=== PATIENT | male | born 1965 | race Two or more races ===

== ENCOUNTER → 2017-06-02 | Emergency (ER) | payer OTHER ==
[~2017-06-02] VITALS: Ht 180.3 cm; Wt 106.6 kg
[~2017-06-02] MED LIST: AMOX1TAB12 PO; AZO STANDARD95 MG; CLONAZEPAM0.5 MG PO; DIOVAN HCT 320/1 TA2; DIOVAN320 MG PO; FENOFIBRATE40 MG; HYOSCYAMINE0.125 M1 SL; INTESTINEX1 CA1 PO; LEVAQUIN500 MG PO; Mylicon 125MG PO; NEURONTIN300 MG; OXYC1TAB9 PO; PEPCID20 MG PO; PNEU16DI2; PROBIOTIC & AC1 EACH PO; SERTRALINE HCL25 MG PO; TAMS0.4C PO; VALSARTAN-HCTZ1 EAC3 PO
== END | disposition home or self-care (01) ==
LOC: ER 17:04
DX: R10.31 Right lower quadrant pain (principal); R31.0 Gross hematuria; N39.0 Urinary tract infection, site not specified; R82.79 Other abnormal findings on microbiological examination of urine

== ENCOUNTER 2017-07-03 20:55 | Emergency (ER) | payer OTHER ==
[~2017-07-03] VITALS: Ht 180.3 cm; Wt 104.3 kg
== END 2017-07-03 23:46 | disposition home or self-care (01) ==
LOC: ER 20:55
DX: N39.0 Urinary tract infection, site not specified (principal); M54.5 Low back pain

== ENCOUNTER 2017-11-13 18:51 | Inpatient (IN) | payer OTHER ==
[~2017-11-13] VITALS: Ht 180.3 cm; Wt 120.2 kg
[2017-11-19] MEDS ORDERED: TAMSULOSIN HCL0.4 MG PO (14:11)
[2017-11-19] MEDS ORDERED: FENOFIBRATE40 MG PO (14:11)
[2017-11-19] MEDS ORDERED: VERAPAMIL ER240 MG PO (14:11)
[2017-11-19] MEDS ORDERED: LEVAQUIN500 MG PO (14:11)
== END 2017-11-19 14:20 | disposition home or self-care (01) | DRG 690 ==
LOC: ER 18:51 → MEDI 11-14 11:51 → SEC-K 11-14 11:51 → MEDI 11-14 14:07
PROC: BT43ZZZ Ultrasonography of Bilateral Kidneys (ICD-10-PCS; principal; 2017-11-14)
PROC: CT131ZZ Planar Nuclear Medicine Imaging of Kidneys, Ureters and Bladder using Technetium 99m (Tc-99m) (ICD-10-PCS; 2017-11-16)
DX: N13.6 Pyonephrosis (principal); N40.0 Benign prostatic hyperplasia without lower urinary tract symptoms; N17.8 Other acute kidney failure; E66.8 Other obesity; Z68.39 Body mass index [BMI] 39.0-39.9, adult; Z93.3 Colostomy status; B96.1 Klebsiella pneumoniae [K. pneumoniae] as the cause of diseases classified elsewhere; B95.4 Other streptococcus as the cause of diseases classified elsewhere; C43.51 Malignant melanoma of anal skin; L80 Vitiligo; I12.9 Hypertensive chronic kidney disease with stage 1 through stage 4 chronic kidney disease, or unspecified chronic kidney disease; N18.1 Chronic kidney disease, stage 1; D63.1 Anemia in chronic kidney disease

== ENCOUNTER 2019-03-02 14:05 | Emergency (ER) | payer OTHER ==
[~2019-03-02] VITALS: Ht 180.3 cm; Wt 117.0 kg
[~2019-03-02 14:05] MED LIST changes: +FENOFIBRATE40 MG PO; +TAMSULOSIN HCL0.4 MG PO; +VERAPAMIL ER240 MG PO
== END 2019-03-02 21:20 | disposition home or self-care (01) ==
LOC: ER 14:05
DX: J06.9 Acute upper respiratory infection, unspecified (principal); N39.0 Urinary tract infection, site not specified; B96.1 Klebsiella pneumoniae [K. pneumoniae] as the cause of diseases classified elsewhere; B95.4 Other streptococcus as the cause of diseases classified elsewhere

== ENCOUNTER 2019-03-06 20:35 | Inpatient (IN) | payer OTHER ==
[~2019-03-06] VITALS: Ht 160 cm; Wt 122.5 kg
[2019-03-06] MEDS ORDERED: SULFAMETHOXAZO500 GM (20:56)
== END 2019-03-17 15:25 | disposition home or self-care (01) | DRG 689 ==
LOC: ER 20:35 → SURH 03-07 10:58
PROVIDERS: ADMIT Internal Medicine
PROC: 0T9030Z Drainage of Right Kidney with Drainage Device, Percutaneous Approach (ICD-10-PCS; principal; 2019-03-09)
PROC: 0WBH3ZX Excision of Retroperitoneum, Percutaneous Approach, Diagnostic (ICD-10-PCS; 2019-03-09)
PROC: BB24ZZZ Computerized Tomography (CT Scan) of Bilateral Lungs (ICD-10-PCS; 2019-03-15)
PROC: 0W9930Z Drainage of Right Pleural Cavity with Drainage Device, Percutaneous Approach (ICD-10-PCS; 2019-03-16)
DX: N13.6 Pyonephrosis (principal); R65.20 Severe sepsis without septic shock; C19 Malignant neoplasm of rectosigmoid junction; N30.01 Acute cystitis with hematuria; J90 Pleural effusion, not elsewhere classified; J98.11 Atelectasis; N17.8 Other acute kidney failure; I12.9 Hypertensive chronic kidney disease with stage 1 through stage 4 chronic kidney disease, or unspecified chronic kidney disease; N40.0 Benign prostatic hyperplasia without lower urinary tract symptoms; N18.2 Chronic kidney disease, stage 2 (mild); L80 Vitiligo; J98.6 Disorders of diaphragm; R19.09 Other intra-abdominal and pelvic swelling, mass and lump; R59.0 Localized enlarged lymph nodes; E66.09 Other obesity due to excess calories; Z68.35 Body mass index [BMI] 35.0-35.9, adult

== ENCOUNTER 2019-06-19 11:19 | Inpatient (IN) | payer OTHER ==
[~2019-06-19] VITALS: Ht 180.3 cm; Wt 122.5 kg
[~2019-06-19 11:19] MED LIST changes: +SULFAMETHOXAZO500 GM
[2019-06-27] MEDS ORDERED: INTESTINEX680 M1 PO (13:16)
[2019-06-27] MEDS ORDERED: FAMOTIDINE20 MG PO (13:16)
== END 2019-06-27 14:17 | disposition home or self-care (01) | DRG 699 ==
LOC: ER 11:19 → SURH 20:43
PROVIDERS: ADMIT Internal Medicine Geriatric Medicine
PROC: BW21ZZZ Computerized Tomography (CT Scan) of Abdomen and Pelvis (ICD-10-PCS; principal; 2019-06-19)
PROC: BT2 Imaging, Urinary System, Computerized Tomography (CT Scan) (ICD-10-PCS; 2019-06-23)
DX: N99.522 Malfunction of incontinent external stoma of urinary tract (principal); N13.6 Pyonephrosis; C21.1 Malignant neoplasm of anal canal; E66.01 Morbid (severe) obesity due to excess calories; Z68.35 Body mass index [BMI] 35.0-35.9, adult; B96.1 Klebsiella pneumoniae [K. pneumoniae] as the cause of diseases classified elsewhere; B95.4 Other streptococcus as the cause of diseases classified elsewhere; N20.0 Calculus of kidney; I12.9 Hypertensive chronic kidney disease with stage 1 through stage 4 chronic kidney disease, or unspecified chronic kidney disease; N18.3 Chronic kidney disease, stage 3 (moderate); K43.5 Parastomal hernia without obstruction or gangrene

== ENCOUNTER 2019-07-05 18:14 | Inpatient (IN) | payer OTHER ==
[~2019-07-05] VITALS: Ht 180.3 cm; Wt 126.6 kg
[~2019-07-05 18:14] MED LIST changes: +FAMOTIDINE20 MG PO; +INTESTINEX680 M1 PO
[2019-07-12] MEDS ORDERED: AMLODIPINE BESYL5 MG PO (11:19)
[2019-07-12] MEDS ORDERED: FAMOTIDINE20 MG PO (11:19)
[2019-07-12] MEDS ORDERED: INTESTINEX680 M1 PO (11:19)
== END 2019-07-12 11:59 | disposition home or self-care (01) | DRG 699 ==
LOC: ER 18:14 → SEC-K 20:42 → SURG 20:42
PROVIDERS: ADMIT Internal Medicine Geriatric Medicine; ATTEND Internal Medicine Geriatric Medicine
PROC: 0T9430Z Drainage of Left Kidney Pelvis with Drainage Device, Percutaneous Approach (ICD-10-PCS; principal; 2019-07-07)
PROC: 0T9330Z Drainage of Right Kidney Pelvis with Drainage Device, Percutaneous Approach (ICD-10-PCS; 2019-07-07)
PROC: BT2 Imaging, Urinary System, Computerized Tomography (CT Scan) (ICD-10-PCS; 2019-07-07)
DX: N99.522 Malfunction of incontinent external stoma of urinary tract (principal); N13.30 Unspecified hydronephrosis; C21.0 Malignant neoplasm of anus, unspecified; N39.0 Urinary tract infection, site not specified; N17.9 Acute kidney failure, unspecified; I12.9 Hypertensive chronic kidney disease with stage 1 through stage 4 chronic kidney disease, or unspecified chronic kidney disease; N18.3 Chronic kidney disease, stage 3 (moderate); L80 Vitiligo; E66.9 Obesity, unspecified; Z68.35 Body mass index [BMI] 35.0-35.9, adult; B96.1 Klebsiella pneumoniae [K. pneumoniae] as the cause of diseases classified elsewhere

== ENCOUNTER 2019-10-15 16:48 | Inpatient (IN) | payer OTHER ==
[~2019-10-15] VITALS: Ht 180.3 cm; Wt 121.1 kg
[~2019-10-15 16:48] MED LIST changes: +AMLODIPINE BESYL5 MG PO
[2019-10-15] MEDS ORDERED: AMLODIPINE BESY10 MG PO (17:02)
[2019-10-15] MEDS ORDERED: LISINOPRIL10 MG PO (17:02)
[2019-10-17] MEDS ORDERED: AMLODIPINE BESYL5 MG PO (08:31)
[2019-10-26] MEDS ORDERED: AMLODIPINE BESY10 MG PO (17:00)
[2019-10-26] MEDS ORDERED: FAMOTIDINE20 MG PO (17:00)
[2019-10-26] MEDS ORDERED: INTESTINEX680 M1 PO (17:00)
== END 2019-10-26 17:21 | disposition home health service (06) | DRG 699 ==
LOC: ER 16:48 → SURG 18:56 → SURH 10-17 13:32
PROVIDERS: ADMIT Internal Medicine Geriatric Medicine; ATTEND Internal Medicine Geriatric Medicine
PROC: 0T9330Z Drainage of Right Kidney Pelvis with Drainage Device, Percutaneous Approach (ICD-10-PCS; principal; 2019-10-17)
DX: N99.522 Malfunction of incontinent external stoma of urinary tract (principal); N39.0 Urinary tract infection, site not specified; N13.39 Other hydronephrosis; I12.9 Hypertensive chronic kidney disease with stage 1 through stage 4 chronic kidney disease, or unspecified chronic kidney disease; N18.3 Chronic kidney disease, stage 3 (moderate); E66.9 Obesity, unspecified; Z68.35 Body mass index [BMI] 35.0-35.9, adult; L80 Vitiligo; B96.1 Klebsiella pneumoniae [K. pneumoniae] as the cause of diseases classified elsewhere; Z20.828 Contact with and (suspected) exposure to other viral communicable diseases

== ENCOUNTER 2020-04-01 16:57 | Inpatient (IN) | payer OTHER ==
[~2020-04-01] VITALS: Ht 180.3 cm; Wt 124.7 kg
[~2020-04-01 16:57] MED LIST changes: +AMLODIPINE BESY10 MG PO; +LISINOPRIL10 MG PO
[2020-04-11] MEDS ORDERED: AMLODIPINE BESY10 MG PO (13:51)
[2020-04-11] MEDS ORDERED: INTESTINEX680 M1 PO (13:51)
[2020-04-11] MEDS ORDERED: FAMOTIDINE20 MG PO (13:51)
[2020-04-11] MEDS ORDERED: LISINOPRIL5 MG PO (13:51)
== END 2020-04-11 15:04 | disposition home or self-care (01) | DRG 699 ==
LOC: ER 16:57 → MEDJ 19:03
PROVIDERS: ADMIT Internal Medicine Geriatric Medicine; ATTEND Internal Medicine Geriatric Medicine
PROC: 8E0ZXY6 Isolation (ICD-10-PCS; principal; 2020-04-02)
PROC: 0T9430Z Drainage of Left Kidney Pelvis with Drainage Device, Percutaneous Approach (ICD-10-PCS; 2020-04-04)
PROC: 0T9330Z Drainage of Right Kidney Pelvis with Drainage Device, Percutaneous Approach (ICD-10-PCS; 2020-04-04)
DX: T83.012A Breakdown (mechanical) of nephrostomy catheter, initial encounter (principal); N13.6 Pyonephrosis; Z68.35 Body mass index [BMI] 35.0-35.9, adult; I12.9 Hypertensive chronic kidney disease with stage 1 through stage 4 chronic kidney disease, or unspecified chronic kidney disease; N18.32 Chronic kidney disease, stage 3b; Z20.822 Contact with and (suspected) exposure to COVID-19; B96.1 Klebsiella pneumoniae [K. pneumoniae] as the cause of diseases classified elsewhere; L80 Vitiligo; E66.01 Morbid (severe) obesity due to excess calories; R31.9 Hematuria, unspecified; Z93.3 Colostomy status

== ENCOUNTER 2020-10-10 18:13 | Inpatient (IN) | payer OTHER ==
[~2020-10-10] VITALS: Ht 180.3 cm; Wt 124.7 kg
[~2020-10-10 18:13] MED LIST changes: +LISINOPRIL5 MG PO
[2020-10-14] MEDS ORDERED: FAMOTIDINE20 MG (09:45)
== END 2020-10-21 13:35 | disposition home or self-care (01) | DRG 699 ==
LOC: ER 18:13 → MEDI 10-11 00:18
PROVIDERS: Radiology Vascular & Interventional Radiology; ADMIT Internal Medicine Geriatric Medicine; ATTEND Internal Medicine Geriatric Medicine
PROC: 0T25X0Z Change Drainage Device in Kidney, External Approach (ICD-10-PCS; principal; 2020-10-14 19:00)
DX: T83.032A Leakage of nephrostomy catheter, initial encounter (principal); N17.8 Other acute kidney failure; C21.1 Malignant neoplasm of anal canal; R78.81 Bacteremia; N13.1 Hydronephrosis with ureteral stricture, not elsewhere classified; I12.9 Hypertensive chronic kidney disease with stage 1 through stage 4 chronic kidney disease, or unspecified chronic kidney disease; N18.31 Chronic kidney disease, stage 3a; E66.8 Other obesity; Z68.35 Body mass index [BMI] 35.0-35.9, adult; Z20.822 Contact with and (suspected) exposure to COVID-19; Y83.8 Other surgical procedures as the cause of abnormal reaction of the patient, or of later complication, without mention of misadventure at the time of the procedure; B96.5 Pseudomonas (aeruginosa) (mallei) (pseudomallei) as the cause of diseases classified elsewhere

== ENCOUNTER 2021-04-06 15:54 | Inpatient (IN) | payer OTHER ==
[~2021-04-06] VITALS: Ht 180.3 cm; Wt 122.5 kg
[~2021-04-06 15:54] MED LIST changes: +FAMOTIDINE20 MG
[2021-04-14] MEDS ORDERED: INTESTINEX680 M1 PO (10:39)
[2021-04-14] MEDS ORDERED: LISINOPRIL5 MG PO (10:39)
[2021-04-14] MEDS ORDERED: AMLODIPINE BESY10 MG PO (10:39)
== END 2021-04-14 11:00 | disposition home or self-care (01) | DRG 699 ==
LOC: ER 15:54 → SEC-K 04-07 14:41 → MEDJ 04-07 16:20
PROVIDERS: ADMIT Internal Medicine Geriatric Medicine; ATTEND Internal Medicine Geriatric Medicine
PROC: 0T25X0Z Change Drainage Device in Kidney, External Approach (ICD-10-PCS; principal; 2021-04-09)
DX: N99.522 Malfunction of incontinent external stoma of urinary tract (principal); C19 Malignant neoplasm of rectosigmoid junction; N39.0 Urinary tract infection, site not specified; R65.10 Systemic inflammatory response syndrome (SIRS) of non-infectious origin without acute organ dysfunction; N18.30 Chronic kidney disease, stage 3 unspecified; I12.9 Hypertensive chronic kidney disease with stage 1 through stage 4 chronic kidney disease, or unspecified chronic kidney disease; E11.22 Type 2 diabetes mellitus with diabetic chronic kidney disease; E66.8 Other obesity; Z46.6 Encounter for fitting and adjustment of urinary device

== ENCOUNTER 2021-09-06 17:41 | Inpatient (IN) | payer OTHER ==
[~2021-09-06] VITALS: Ht 180.3 cm; Wt 126.6 kg
[2021-09-06] MEDS ORDERED: PANADOL (18:35)
--- NOTE | 2021-09-06 18:35 | NUR ---
PTE SE RECIBE POR VOMITOS FIEBRE Y DOLOR EN LOS RINONES REFIERE PTE.
--- NOTE | 2021-09-06 20:20 | NUR ---
PACIENTE SE LE REALIZAN MUESTRAS DE YARED POR ORDEN MEDICA, SE ORIENTA SOBRE USO Y EFECTOS DE LOS MEDICAMENTOS A SER ADMINISTRADOS. PACIENTE SE LE REALIZAN MUESTRAS DE YARED Y CULTIVOS DE YARED. PACIENTE AL MOMENTO SE MANTIENENENE SPERA DE REALZIAR SONOGRAMA.
--- NOTE | 2021-09-06 23:09 | NUR ---
SE RECIBE PTE ALERTA Y ORIENTADO X3 EN CAMA BAJA CON BARANDAS ELEVADAS POR SEGURIDAD, CON BUEN PATRON RESIRATORIO, RECIBIENDO IV FLUIDS PATENTE. AREA DE VENOPUNCION SAFIA DE EDEMA. SE MANTIENE BAJO OBSERVACION POR CAMBIOS SIGNIFICATIVOS
[2021-09-08] MEDS ORDERED: PANADOL EXTRA500 MG (08:33)
[2021-09-12] MEDS ORDERED: ABANEU-SL TABL1 EACH SL (13:43)
[2021-09-12] MEDS ORDERED: PEPCID AC20 MG PO (13:43)
[2021-09-12] MEDS ORDERED: FUSION PLUS CA1 EACH PO (13:43)
[2021-09-12] MEDS ORDERED: AMLODIPINE BESY10 MG PO (13:43)
== END 2021-09-12 14:26 | disposition home or self-care (01) | DRG 699 ==
LOC: ER 17:41 → SURG 09-07 13:16
PROVIDERS: ADMIT Internal Medicine Geriatric Medicine; ATTEND Internal Medicine Geriatric Medicine
PROC: BT4JZZZ Ultrasonography of Kidneys and Bladder (ICD-10-PCS; 2021-09-06)
PROC: 0T9430Z Drainage of Left Kidney Pelvis with Drainage Device, Percutaneous Approach (ICD-10-PCS; principal; 2021-09-09)
PROC: 0T9330Z Drainage of Right Kidney Pelvis with Drainage Device, Percutaneous Approach (ICD-10-PCS; 2021-09-09)
DX: N99.522 Malfunction of incontinent external stoma of urinary tract (principal); N13.6 Pyonephrosis; C21.8 Malignant neoplasm of overlapping sites of rectum, anus and anal canal; N17.9 Acute kidney failure, unspecified; I12.9 Hypertensive chronic kidney disease with stage 1 through stage 4 chronic kidney disease, or unspecified chronic kidney disease; N40.1 Benign prostatic hyperplasia with lower urinary tract symptoms; N18.30 Chronic kidney disease, stage 3 unspecified; D63.1 Anemia in chronic kidney disease; F32.9 Major depressive disorder, single episode, unspecified; N28.9 Disorder of kidney and ureter, unspecified

== ENCOUNTER 2022-06-17 19:24 | Inpatient (IN) | payer OTHER ==
[~2022-06-17] VITALS: Ht 180.3 cm; Wt 81.2 kg
[~2022-06-17 19:24] MED LIST changes: +ABANEU-SL TABL1 EACH SL; +FUSION PLUS CA1 EACH PO; +PANADOL; +PANADOL EXTRA500 MG; +PEPCID AC20 MG PO
[2022-06-24] MEDS ORDERED: AMLODIPINE BESY10 MG PO (13:07)
[2022-06-24] MEDS ORDERED: FUSION PLUS CA1 EACH PO (13:07)
[2022-06-24] MEDS ORDERED: ABANEU-SL TABL1 EACH SL (13:07)
[2022-06-24] MEDS ORDERED: INTESTINEX680 M1 PO (13:07)
== END 2022-06-24 15:34 | disposition home or self-care (01) | DRG 699 ==
LOC: ER 19:24 → MEDJ 21:48 → MEDI 06-23 17:43
PROVIDERS: Radiology Vascular & Interventional Radiology; ADMIT Internal Medicine Geriatric Medicine; ATTEND Internal Medicine Geriatric Medicine
PROC: 0T25X0Z Change Drainage Device in Kidney, External Approach (ICD-10-PCS; 2022-06-18)
PROC: 0T25X0Z Change Drainage Device in Kidney, External Approach (ICD-10-PCS; principal; 2022-06-18 18:45)
DX: T83.512A Infection and inflammatory reaction due to nephrostomy catheter, initial encounter (principal); N13.6 Pyonephrosis; N17.9 Acute kidney failure, unspecified; N39.0 Urinary tract infection, site not specified; T83.092A Other mechanical complication of nephrostomy catheter, initial encounter; R33.8 Other retention of urine; I12.9 Hypertensive chronic kidney disease with stage 1 through stage 4 chronic kidney disease, or unspecified chronic kidney disease; N18.30 Chronic kidney disease, stage 3 unspecified; Z85.038 Personal history of other malignant neoplasm of large intestine

== ENCOUNTER 2022-11-13 19:12 | Inpatient (IN) | payer OTHER ==
[~2022-11-13] VITALS: Ht 180.3 cm; Wt 122.5 kg
[2022-11-13 20:59] LABS: HEMATOCRIT 39.8 % (39.0-48.0); HEMOGLOBIN 13.9 g/dL (13-16.00); MEAN CORPUSCULAR HEMOGLOBIN 31.1 pg (27.00-32.0); MEAN CORPUSCULAR HGB CONC 34.9 g/dl (32.0-36.0); PLATELET COUNT 334 K/uL (150-450); RED BLOOD COUNT 4.47 M/uL (4.00-6.00)
[2022-11-13 21:28] LABS: ALBUMIN 3.2 gm/dL (3.4-5.0); BILIRUBIN TOTAL 0.6 mg/dL (0.3-1.2); CALCIUM 9.5 mg/dL (8.5-10.1); GFR 10.05; GLOBULINA 6.8 G/DL (2.4-3.5); POTASSIUM 3.18 mEq/L (3.5-5.1)
[2022-11-13 21:32] LABS: CREATININE SERUM 5.84 mg/dL (0.70-1.30)
[2022-11-13 21:50] LABS: URINE APPEARANCE Turbid; URINE BILIRRUBIN Negative (NEGATIVE); URINE BLOOD Large; URINE COLOR Dark Yellow; URINE GLUCOSE Negative (NEGATIVE); URINE LEUKOCYTE Large; URINE NITRATE Negative; URINE UROBILINOGEN 0.2 E.U./dl
[2022-11-13 21:53] LABS: URINE RBC 913.9 uL (0.0-20.8)
[2022-11-13 22:10] LABS: URINE BACTERIA > 9821.2 uL (0.0-1933); URINE EPITHELIAL CELLS > 201.7 uL (0.0-38.8); URINE PROTEIN 300 (NEGATIVE); URINE WBC > 5548.3 uL (0.0-23.2)
[2022-11-13 22:11] LABS: URINE BACTERIA MANY; URINE MUCUS SCANT
[2022-11-13 22:12] LABS: URINE CRYSTALS FEW /HPF
[2022-11-14 05:34] LABS: HEMATOCRIT 37.9 % (39.0-48.0); HEMOGLOBIN 12.6 g/dL (13-16.00); MEAN CELL VOLUME 90.6 fL (80.0-100.00); MEAN CORPUSCULAR HEMOGLOBIN 30.1 pg (27.00-32.0); MEAN CORPUSCULAR HGB CONC 33.3 g/dl (32.0-36.0); PLATELET COUNT 299 K/uL (150-450); RED BLOOD COUNT 4.18 M/uL (4.00-6.00); RED CELL DISTRIBUTION WIDTH 13.7 % (11.5-14.5)
[2022-11-14 05:35] LABS: ERYTHROCYTE SEDIMENTATION RATE 49 mm/hr
[2022-11-14 05:49] LABS: INR 1.08; PARTIAL THROMBOPLASTIN TIME 33.9 SECONDS (22.0-34.0); PROTHROMBIN TIME 11.3 SECONDS (9.0-11.5)
[2022-11-14 05:53] LABS: BILIRUBIN TOTAL 0.48 mg/dL (0.3-1.2); BILIRUBIN,CONJUGATED 0.26 mg/dL (0.0-0.2); BILIRUBIN,UNCONJUGATED 0.22 mg/dL (0.0-0.6); CALCIUM 8.7 mg/dL (8.5-10.1); CHOL HDL RATIO 3.7 (0-5.0); GLOBULINA 6.3 G/DL (2.4-3.5); TOTAL PROTEIN 9.3 gm/dL (6.4-8.2)
[2022-11-14 06:35] LABS: C-REACTIVE PROTEIN 16.9 MG/DL (0.00-0.29); GFR 10.88
[2022-11-14 10:39] LABS: CREATININE SERUM 5.45 mg/dL (0.70-1.30)
[2022-11-14 10:40] LABS: POTASSIUM 2.87 mEq/L (3.5-5.1)
[2022-11-14 16:07] LABS: URINE APPEARANCE Turbid; URINE BILIRRUBIN Negative (NEGATIVE); URINE BLOOD Large; URINE COLOR Yellow; URINE GLUCOSE Negative (NEGATIVE); URINE LEUKOCYTE Large; URINE NITRATE Negative; URINE UROBILINOGEN 0.2 E.U./dl
[2022-11-14 16:10] LABS: URINE EPITHELIAL CELLS 8.5 uL (0.0-38.8)
[2022-11-14 16:27] LABS: URINE BACTERIA > 9821.5 uL (0.0-1933); URINE CRYSTALS NEGATIVE /HPF; URINE PROTEIN 100 (NEGATIVE); URINE WBC > 5548.3 uL (0.0-23.2)
[2022-11-15 13:30] LABS: ALBUMIN 2.8 gm/dL (3.4-5.0); BILIRUBIN TOTAL 0.31 mg/dL (0.3-1.2); CALCIUM 8.5 mg/dL (8.5-10.1); GFR 11.34; POTASSIUM 3.52 mEq/L (3.5-5.1); TOTAL PROTEIN 7.8 gm/dL (6.4-8.2)
[2022-11-15 14:44] LABS: CREATININE SERUM 5.26 mg/dL (0.70-1.30)
[2022-11-16 07:16] LABS: ALBUMIN 2.6 gm/dL (3.4-5.0); BILIRUBIN TOTAL 0.3 mg/dL (0.3-1.2); CALCIUM 8.2 mg/dL (8.5-10.1); GFR 12.57; GLOBULINA 4.8 G/DL (2.4-3.5); POTASSIUM 3.64 mEq/L (3.5-5.1); TOTAL PROTEIN 7.4 gm/dL (6.4-8.2)
[2022-11-16 08:11] LABS: HEMATOCRIT 36.1 % (39.0-48.0); HEMOGLOBIN 11.9 g/dL (13-16.00); MEAN CELL VOLUME 91.5 fL (80.0-100.00); MEAN CORPUSCULAR HEMOGLOBIN 30.2 pg (27.00-32.0); PLATELET COUNT 289 K/uL (150-450); RED BLOOD COUNT 3.95 M/uL (4.00-6.00); RED CELL DISTRIBUTION WIDTH 13.9 % (11.5-14.5)
[2022-11-16 08:37] LABS: CREATININE SERUM 4.81 mg/dL (0.70-1.30)
[2022-11-16 08:42] LABS: ERYTHROCYTE SEDIMENTATION RATE 43 mm/hr
[2022-11-16 09:09] LABS: ALBUMIN 2.6 gm/dL (3.4-5.0); BILIRUBIN TOTAL 0.25 mg/dL (0.3-1.2); CALCIUM 8.4 mg/dL (8.5-10.1); GLOBULINA 4.8 G/DL (2.4-3.5); POTASSIUM 3.76 mEq/L (3.5-5.1); TOTAL PROTEIN 7.4 gm/dL (6.4-8.2)
[2022-11-16 09:45] LABS: C-REACTIVE PROTEIN 11.4 MG/DL (0.00-0.29); GFR 12.28
[2022-11-16 09:46] LABS: CREATININE SERUM 4.91 mg/dL (0.70-1.30)
[2022-11-17 07:44] LABS: HEMATOCRIT 34.5 % (39.0-48.0); HEMOGLOBIN 11.7 g/dL (13-16.00); MEAN CELL VOLUME 90.7 fL (80.0-100.00); MEAN CORPUSCULAR HEMOGLOBIN 30.8 pg (27.00-32.0); PLATELET COUNT 297 K/uL (150-450); RED CELL DISTRIBUTION WIDTH 14.2 % (11.5-14.5)
[2022-11-17 08:18] LABS: CALCIUM 8.7 mg/dL (8.5-10.1); POTASSIUM 4.22 mEq/L (3.5-5.1)
[2022-11-17 09:23] LABS: GFR 14.95
[2022-11-17 09:24] LABS: CREATININE SERUM 4.14 mg/dL (0.70-1.30)
[2022-11-18 07:16] LABS: HEMATOCRIT 34.6 % (39.0-48.0); HEMOGLOBIN 11.3 g/dL (13-16.00); MEAN CELL VOLUME 91.4 fL (80.0-100.00); MEAN CORPUSCULAR HEMOGLOBIN 29.9 pg (27.00-32.0); MEAN CORPUSCULAR HGB CONC 32.7 g/dl (32.0-36.0); PLATELET COUNT 301 K/uL (150-450); RED BLOOD COUNT 3.78 M/uL (4.00-6.00)
[2022-11-18 07:26] LABS: CALCIUM 8.5 mg/dL (8.5-10.1); CREATININE SERUM 3.62 mg/dL (0.70-1.30); GFR 17.45; PHOSPHOROUS 3.2 mg/dL (2.5-4.9); POTASSIUM 3.86 mEq/L (3.5-5.1)
[2022-11-19 07:00] LABS: CALCIUM 8.5 mg/dL (8.5-10.1); CREATININE SERUM 3.37 mg/dL (0.70-1.30); GFR 18.95; MAGNESIUM 1.8 mg/dL (1.8-2.4); PHOSPHOROUS 3.5 mg/dL (2.5-4.9); POTASSIUM 3.83 mEq/L (3.5-5.1)
[2022-11-20 07:10] LABS: CALCIUM 8.3 mg/dL (8.5-10.1); CREATININE SERUM 3.17 mg/dL (0.70-1.30); GFR 20.34; MAGNESIUM 1.8 mg/dL (1.8-2.4); PHOSPHOROUS 3.3 mg/dL (2.5-4.9); POTASSIUM 3.63 mEq/L (3.5-5.1)
[2022-11-22 07:52] LABS: CALCIUM 8.2 mg/dL (8.5-10.1); CREATININE SERUM 2.83 mg/dL (0.70-1.30); GFR 23.19; MAGNESIUM 1.6 mg/dL (1.8-2.4); PHOSPHOROUS 3.5 mg/dL (2.5-4.9); POTASSIUM 3.44 mEq/L (3.5-5.1)
[2022-11-22] MEDS ORDERED: PEPCID AC20 MG PO (13:30)
[2022-11-22] MEDS ORDERED: BENZONATATE200 M1 PO (13:30)
[2022-11-22] MEDS ORDERED: FUSION PLUS CA1 EACH PO (13:30)
[2022-11-22] MEDS ORDERED: AMLODIPINE BESY10 MG PO (13:30)
== END 2022-11-22 13:47 | disposition home or self-care (01) | DRG 872 ==
LOC: ER 19:12 → SURG 23:21 → SEC-K 23:21 → SURG 11-14 02:01
PROVIDERS: General Practice; Internal Medicine; ADMIT Internal Medicine Geriatric Medicine; ATTEND Internal Medicine Geriatric Medicine
PROC: BW21ZZZ Computerized Tomography (CT Scan) of Abdomen and Pelvis (ICD-10-PCS; principal; 2022-11-13)
PROC: 0T943ZZ Drainage of Left Kidney Pelvis, Percutaneous Approach (ICD-10-PCS; 2022-11-16)
PROC: 0T25X0Z Change Drainage Device in Kidney, External Approach (ICD-10-PCS; 2022-11-16)
DX: A41.9 Sepsis, unspecified organism (principal); N13.2 Hydronephrosis with renal and ureteral calculous obstruction; N17.9 Acute kidney failure, unspecified; N39.0 Urinary tract infection, site not specified; N99.522 Malfunction of incontinent external stoma of urinary tract; N99.521 Infection of incontinent external stoma of urinary tract; E66.9 Obesity, unspecified; Z68.35 Body mass index [BMI] 35.0-35.9, adult; I12.9 Hypertensive chronic kidney disease with stage 1 through stage 4 chronic kidney disease, or unspecified chronic kidney disease; N18.30 Chronic kidney disease, stage 3 unspecified; I10 Essential (primary) hypertension; T83.098A Other mechanical complication of other urinary catheter, initial encounter

== ENCOUNTER 2023-10-03 22:13 | Inpatient (IN) | payer OTHER ==
[~2023-10-03] VITALS: Ht 180.3 cm; Wt 122.5 kg
[~2023-10-03 22:13] MED LIST changes: +BENZONATATE200 M1 PO; +LEVOFLOXACIN500 MG PO; +LEVOFLOXACIN750 MG PO
--- NOTE | 2023-10-04 | NUR ---
PTE ALERTA Y ORIENTADO X3 REFIERE A PRESENTADO VOMITOS DESDE KATHY. REFIERE SER PTE DE DRA. MARIA ESTHER RAMIREZ Y DR. BARLOW. PTE TIENE HISTORIAL DE CANCER DE COLON. TIENE FRANCISCO JAVIER COLOSTOMIA Y 2 NEFRECTOMIAS. LA DEL LADO LT DEJO DE KARLI.
[2023-10-04] MEDS ORDERED: PROMETHAZINE HCL 50 MG/ML AMPUL IM STA (00:30)
[2023-10-04] MEDS ORDERED: KETOROLAC TROMETHAMINE 30 MG VIAL IV STA (00:30)
[2023-10-04] MEDS ORDERED: FAMOTIDINE/PF 20 MG/2 ML VIAL IV PUSH STA (00:32)
[2023-10-04] MEDS ORDERED: FAMOTIDINE/PF 20 MG/2 ML VIAL ONE ×2 (00:39→14:40)
[2023-10-04] MEDS ORDERED: PROMETHAZINE HCL 50 MG/ML AMPUL IM ONE (00:39)
[2023-10-04] MEDS ORDERED: KETOROLAC TROMETHAMINE 30 MG VIAL ONE (00:39)
[2023-10-04] MEDS ORDERED: 0.9 % SODIUM CHLORIDE 1,000 ML IV ONE (00:45)
[2023-10-04] MEDS ORDERED: CEFTRIAXONE SODIUM 1,000 MG VIAL IV STA (00:57)
--- NOTE | 2023-10-04 01:16 | NUR ---
PTE ALERTA Y ORIENTADO X3. SE REALIZAN MUESTRAS DE LAB NICOLE ORDEN MEDICA Y BAJO MEDIDAS ASEPTICAS. SE ADMNISTRA MEDICAMENTO NICOLE ORDEN MEDICA POR SAMEERA ROGERS.
[2023-10-04 01:42] LABS: HEMATOCRIT 44.5 % (39.0-48.0); HEMOGLOBIN 15.5 g/dL (13-16.00); MEAN CORPUSCULAR HEMOGLOBIN 32.8 pg (27.00-32.0); MEAN CORPUSCULAR HGB CONC 34.9 g/dl (32.0-36.0); PLATELET COUNT 202 K/uL (150-450); RED BLOOD COUNT 4.73 M/uL (4.00-6.00); RED CELL DISTRIBUTION WIDTH 13.9 % (11.5-14.5)
[2023-10-04 01:42] LABS: PH,URINE 7.5 (5.0-8.0); URINE APPEARANCE Clear; URINE BILIRRUBIN Negative (NEGATIVE); URINE BLOOD Small; URINE COLOR Orange; URINE GLUCOSE Negative (NEGATIVE); URINE KETONE Negative (NEGATIVE); URINE LEUKOCYTE Moderate; URINE NITRATE Negative; URINE UROBILINOGEN 0.2 E.U./dl
[2023-10-04 01:46] LABS: URINE CAST 1.98 uL (0.0-1.40); URINE EPITHELIAL CELLS 12.3 uL (0.0-38.8); URINE RBC 19.5 uL (0.0-20.8); URINE WBC 55.9 uL (0.0-23.2)
[2023-10-04 01:46] LABS: INR 1.01; PARTIAL THROMBOPLASTIN TIME 23.3 SECONDS (22.0-34.0)
[2023-10-04 01:56] LABS: ALBUMIN 3.8 gm/dL (3.4-5.0); BILIRUBIN TOTAL 2.13 mg/dL (0.3-1.2); CALCIUM 9.1 mg/dL (8.5-10.1); GFR 12.83; GLOBULINA 4.4 G/DL (2.4-3.5); POTASSIUM 3.13 mEq/L (3.5-5.1); TOTAL PROTEIN 8.2 gm/dL (6.4-8.2)
[2023-10-04 02:15] LABS: CREATININE SERUM 4.71 mg/dL (0.70-1.30)
[2023-10-04 02:25] LABS: URINE BACTERIA > 9821.5 uL (0.0-1933); URINE PROTEIN 100 (NEGATIVE)
--- NOTE | 2023-10-04 07:36 | NUR ---
SE RECIBE A PACIENTE ALERTA Y ORIENTADO X3 CON BUEN PATRON RESPIRATORIO DEL TURNO ANTERIOR. PACIENTE SE MANTIENE EN CAMA A NIVEL DE PISO JUNTO CON BARRANDAS ELEVADAS Y TIMBRE ACCESIBLE. PENDIENTE A CONSULTA MEDICA.
[2023-10-04] MEDS ORDERED: KETOROLAC TROMETHAMINE 60 MG VIAL IM ONE ×2 (11:15→11:19)
[2023-10-04] MEDS ORDERED: 0.9 % SODIUM CHLORIDE 1,000 ML IV SCH (13:15)
[2023-10-04] MEDS ORDERED: FAMOTIDINE/PF 20 MG/2 ML VIAL IV SCH (13:27)
[2023-10-04] MEDS ORDERED: CEFTRIAXONE SODIUM 1,000 MG VIAL IV SCH (13:27)
[2023-10-04] MEDS ORDERED: AMLODIPINE BESYLATE 10 MG TABLET PO SCH (13:28)
[2023-10-04] MEDS ORDERED: LACTOBACILLUS ACIDOPHILUS 1 CAP CAP PO SCH (13:28)
[2023-10-04] MEDS ORDERED: hydrALAZINE HCL 20 MG VIAL IV PRN (13:30)
[2023-10-04] MEDS ORDERED: ACETAMINOPHEN 500 MG GEL..CAP PO PRN (13:30)
[2023-10-04] MEDS ORDERED: ONDANSETRON HCL 2 MG/ML VIAL IV PRN (13:30)
[2023-10-04] MEDS ORDERED: POTASSIUM CHLORIDE 20MEQ/100ML H2O PB IV ONE ×2 (14:00→14:40)
[2023-10-04] MEDS ORDERED: CEFTRIAXONE SODIUM 1,000 MG VIAL ONE (14:40)
[2023-10-04] MEDS ORDERED: LACTOBACILLUS ACIDOPHILUS 1 CAP CAP PO ONE (14:40)
[2023-10-04] MEDS ORDERED: ENOXAPARIN SODIUM 30 MG/0.3 ML SYRINGE SUBCUTANEO SCH (17:00)
[2023-10-05 05:31] LABS: HEMATOCRIT 40.5 % (39.0-48.0); MEAN CELL VOLUME 95.3 fL (80.0-100.00); MEAN CORPUSCULAR HEMOGLOBIN 32.9 pg (27.00-32.0); MEAN CORPUSCULAR HGB CONC 34.5 g/dl (32.0-36.0); PLATELET COUNT 154 K/uL (150-450); RED BLOOD COUNT 4.25 M/uL (4.00-6.00); RED CELL DISTRIBUTION WIDTH 13.9 % (11.5-14.5)
[2023-10-05 05:50] LABS: ERYTHROCYTE SEDIMENTATION RATE 57 mm/hr
[2023-10-05 06:07] LABS: BILIRUBIN TOTAL 1.59 mg/dL (0.3-1.2); BILIRUBIN,CONJUGATED 0.85 mg/dL (0.0-0.2); BILIRUBIN,UNCONJUGATED 0.74 mg/dL (0.0-0.6); CALCIUM 8.3 mg/dL (8.5-10.1); GFR 10.96; GLOBULINA 3.5 G/DL (2.4-3.5); MAGNESIUM 2.1 mg/dL (1.8-2.4); PHOSPHOROUS 2.9 mg/dL (2.5-4.9); POTASSIUM 3.65 mEq/L (3.5-5.1); TOTAL PROTEIN 6.5 gm/dL (6.4-8.2)
[2023-10-05 06:38] LABS: CREATININE SERUM 5.4 mg/dL (0.70-1.30)
[2023-10-05] MEDS ORDERED: MEPERIDINE HCL/PF 25 MG/ML VIAL IM PRN (13:00)
[2023-10-05] MEDS ORDERED: PROMETHAZINE HCL 25 MG/ML AMPUL IM PRN (13:00)
[2023-10-05] MEDS ORDERED: MIDAZOLAM HCL 2 MG/2 ML VIAL IV PUSH NR (17:00)
[2023-10-05] MEDS ORDERED: fentaNYL CITRATE 50 MCG/ML AMPUL IV PUSH NR (17:00)
[2023-10-06 08:18] LABS: HEMATOCRIT 41.2 % (39.0-48.0); HEMOGLOBIN 14.3 g/dL (13-16.00); MEAN CORPUSCULAR HEMOGLOBIN 33.3 pg (27.00-32.0); MEAN CORPUSCULAR HGB CONC 34.6 g/dl (32.0-36.0); PLATELET COUNT 178 K/uL (150-450); RED BLOOD COUNT 4.29 M/uL (4.00-6.00); RED CELL DISTRIBUTION WIDTH 13.6 % (11.5-14.5)
[2023-10-06 08:52] LABS: CALCIUM 8.6 mg/dL (8.5-10.1); GFR 11.9; MAGNESIUM 2.1 mg/dL (1.8-2.4); PHOSPHOROUS 3.8 mg/dL (2.5-4.9); POTASSIUM 3.42 mEq/L (3.5-5.1)
[2023-10-06 09:58] LABS: CREATININE SERUM 5.03 mg/dL (0.70-1.30)
[2023-10-06] MEDS ORDERED: POTASSIUM CHLORIDE 20MEQ/100ML H2O PB IV NR (12:30)
[2023-10-06] MEDS ORDERED: RINGERS SOLUTION,LACTATED 1,000 ML IV SCH (19:15)
[2023-10-07 07:14] LABS: HEMATOCRIT 41.7 % (39.0-48.0); HEMOGLOBIN 14.4 g/dL (13-16.00); MEAN CORPUSCULAR HEMOGLOBIN 32.8 pg (27.00-32.0); MEAN CORPUSCULAR HGB CONC 34.6 g/dl (32.0-36.0); PLATELET COUNT 204 K/uL (150-450); RED BLOOD COUNT 4.39 M/uL (4.00-6.00); RED CELL DISTRIBUTION WIDTH 13.2 % (11.5-14.5)
[2023-10-07 07:40] LABS: CALCIUM 9.1 mg/dL (8.5-10.1); GFR 13.63; PHOSPHOROUS 3.9 mg/dL (2.5-4.9); POTASSIUM 4.12 mEq/L (3.5-5.1)
[2023-10-07 07:51] LABS: CREATININE SERUM 4.47 mg/dL (0.70-1.30)
[2023-10-07] MEDS ORDERED: FAMOtidine 20 MG TABLET PO SCH (09:00)
[2023-10-08 07:44] LABS: CALCIUM 8.7 mg/dL (8.5-10.1); CREATININE SERUM 3.55 mg/dL (0.70-1.30); GFR 17.79; MAGNESIUM 1.8 mg/dL (1.8-2.4); PHOSPHOROUS 3.8 mg/dL (2.5-4.9); POTASSIUM 3.33 mEq/L (3.5-5.1)
[2023-10-08] MEDS ORDERED: MAGNESIUM SULFATE/D5W 100 ML IV NR (09:30)
[2023-10-08] MEDS ORDERED: POTASSIUM CHLORIDE 20MEQ/100ML H2O PB IV NR (09:30)
[2023-10-08] MEDS ORDERED: FAMOTIDINE20 MG PO (12:21)
[2023-10-08] MEDS ORDERED: AMLODIPINE BESY10 MG PO (12:21)
[2023-10-08] MEDS ORDERED: INTESTINEX680 M1 PO (12:21)
[2023-10-08] MEDS ORDERED: LEVOFLOXACIN500 MG PO (12:21)
== END 2023-10-08 13:31 | disposition home or self-care (01) | DRG 699 ==
LOC: ER 22:15 → MEDJ 10-04 15:29 → SEC-K 10-04 15:29 → MEDJ 10-04 16:56
PROVIDERS: General Practice; Internal Medicine Nephrology; ADMIT Internal Medicine Geriatric Medicine; ATTEND Internal Medicine Geriatric Medicine
PROC: BW21ZZZ Computerized Tomography (CT Scan) of Abdomen and Pelvis (ICD-10-PCS; 2023-10-04)
PROC: 0T943ZZ Drainage of Left Kidney Pelvis, Percutaneous Approach (ICD-10-PCS; principal; 2023-10-05)
DX: N99.522 Malfunction of incontinent external stoma of urinary tract (principal); C21.0 Malignant neoplasm of anus, unspecified; N39.0 Urinary tract infection, site not specified; N17.9 Acute kidney failure, unspecified; N13.9 Obstructive and reflux uropathy, unspecified; I12.9 Hypertensive chronic kidney disease with stage 1 through stage 4 chronic kidney disease, or unspecified chronic kidney disease; N18.30 Chronic kidney disease, stage 3 unspecified; E87.6 Hypokalemia; E80.6 Other disorders of bilirubin metabolism

== ENCOUNTER 2024-05-14 14:00 | Inpatient (IN) | payer OTHER ==
[~2024-05-14] VITALS: Ht 180.3 cm; Wt 122.5 kg
[2024-05-14] MEDS ORDERED: 0.9 % SODIUM CHLORIDE 1,000 ML IV SCH (16:30)
[2024-05-14] MEDS ORDERED: CEFTRIAXONE SODIUM 1,000 MG VIAL IV ONE (16:45)
[2024-05-14 16:54] LABS: HEMATOCRIT 49.5 % (39.0-48.0); HEMOGLOBIN 17.5 g/dL (13-16.00); MEAN CELL VOLUME 93.8 fL (80.0-100.00); MEAN CORPUSCULAR HEMOGLOBIN 33.1 pg (27.00-32.0); MEAN CORPUSCULAR HGB CONC 35.3 g/dl (32.0-36.0); PLATELET COUNT 307 K/uL (150-450); RED BLOOD COUNT 5.28 M/uL (4.00-6.00); RED CELL DISTRIBUTION WIDTH 12.9 % (11.5-14.5)
[2024-05-14 17:22] LABS: BILIRUBIN TOTAL 1.44 mg/dL (0.3-1.2); CREATININE SERUM 2.97 mg/dL (0.70-1.30); GFR 21.85; GLOBULINA 5.1 G/DL (2.4-3.5); POTASSIUM 3.25 mEq/L (3.5-5.1); TOTAL PROTEIN 9.1 gm/dL (6.4-8.2)
[2024-05-14 19:17] LABS: URINE APPEARANCE Turbid; URINE BILIRRUBIN Negative (NEGATIVE); URINE BLOOD Moderate; URINE COLOR Yellow; URINE GLUCOSE Negative (NEGATIVE); URINE KETONE Negative (NEGATIVE); URINE LEUKOCYTE Large; URINE NITRATE Negative; URINE UROBILINOGEN 0.2 E.U./dl
[2024-05-14 19:21] LABS: URINE CAST 8.63 uL (0.0-1.40); URINE EPITHELIAL CELLS 64.4 uL (0.0-38.8); URINE RBC 166.8 uL (0.0-20.8)
[2024-05-14 20:06] LABS: URINE BACTERIA > 9821.5 uL (0.0-1933); URINE PROTEIN 100 (NEGATIVE); URINE WBC > 5548.3 uL (0.0-23.2)
[2024-05-14] MEDS ORDERED: hydrALAZINE HCL 20 MG VIAL IV PRN (21:45)
[2024-05-14] MEDS ORDERED: ACETAMINOPHEN 500 MG GEL..CAP PO PRN (21:45)
[2024-05-14] MEDS ORDERED: ONDANSETRON HCL 4 MG in 0.9 % SODIUM CHLORIDE 50 ML IV PRN (21:45)
[2024-05-14 23:36] VITALS: BP 122/76; O2SAT 97
[2024-05-15] MEDS ORDERED: PIPERACILLIN/TAZOBACTAM SODIUM 2.25 GM in DEXTROSE 5 % IN WATER 50 ML IV SCH
[2024-05-15 02:48] VITALS: BP 138/71; O2SAT 95
[2024-05-15 07:50] LABS: HEMATOCRIT 43.1 % (39.0-48.0); HEMOGLOBIN 15.3 g/dL (13-16.00); MEAN CELL VOLUME 94.3 fL (80.0-100.00); MEAN CORPUSCULAR HEMOGLOBIN 33.5 pg (27.00-32.0); MEAN CORPUSCULAR HGB CONC 35.6 g/dl (32.0-36.0); PLATELET COUNT 273 K/uL (150-450); RED BLOOD COUNT 4.57 M/uL (4.00-6.00); RED CELL DISTRIBUTION WIDTH 13.2 % (11.5-14.5)
[2024-05-15 07:55] LABS: INR 1.04; PARTIAL THROMBOPLASTIN TIME 27.9 SECONDS (22.0-34.0); PROTHROMBIN TIME 11.3 SECONDS (9.0-11.5)
[2024-05-15 07:59] LABS: ALBUMIN 3.2 gm/dL (3.4-5.0); BILIRUBIN TOTAL 1.18 mg/dL (0.3-1.2); BILIRUBIN,CONJUGATED 0.42 mg/dL (0.0-0.2); BILIRUBIN,UNCONJUGATED 0.76 mg/dL (0.0-0.6); CALCIUM 9.1 mg/dL (8.5-10.1); CHOL HDL RATIO 3.2 (0-5.0); CREATININE SERUM 2.82 mg/dL (0.70-1.30); GFR 23.2; POTASSIUM 3.6 mEq/L (3.5-5.1); TOTAL PROTEIN 7.4 gm/dL (6.4-8.2)
[2024-05-15 08:00] VITALS: BP 138/75; O2SAT 95
[2024-05-15 08:00] LABS: C-REACTIVE PROTEIN 2.03 MG/DL (0.00-0.29)
[2024-05-15 08:20] LABS: ERYTHROCYTE SEDIMENTATION RATE 32 mm/hr
[2024-05-15] MEDS ORDERED: AMLODIPINE BESYLATE 10 MG TABLET PO SCH (09:00)
[2024-05-15] MEDS ORDERED: ENOXAPARIN SODIUM 30 MG/0.3 ML SYRINGE SUBCUTANEO SCH (09:00)
[2024-05-15] MEDS ORDERED: GABAPENTIN 100 MG CAPSULE PO SCH (12:00)
[2024-05-15 16:00] VITALS: BP 134/82; O2SAT 96
[2024-05-15] MEDS ORDERED: LACTOBACILLUS ACIDOPHILUS 1 CAP CAP PO SCH (17:00)
[2024-05-16 01:00] VITALS: BP 131/82; O2SAT 99
[2024-05-16 08:00] VITALS: BP 134/73; O2SAT 95
[2024-05-16 16:00] VITALS: BP 135/82; O2SAT 95
[2024-05-16] MEDS ORDERED: 0.9 % SODIUM CHLORIDE 1,000 ML IV SCH (16:30)
[2024-05-17 00:24] VITALS: BP 136/77; O2SAT 97
[2024-05-17 08:00] VITALS: BP 145/81; O2SAT 96
[2024-05-17] MEDS ORDERED: FLUCONAZOLE 100 MG TABLET PO NR ×2 (13:30→21:00)
[2024-05-17 16:00] VITALS: BP 154/86; O2SAT 96
[2024-05-17] MEDS ORDERED: CIPROFLOXACIN HCL 500 MG TABLET PO SCH (17:00)
[2024-05-17] MEDS ORDERED: CIPROFLOXACIN HCL 250 MG TABLET PO SCH (17:00)
[2024-05-17] MEDS ORDERED: BUPIVACAINE HCL/MPF 0.5% 30ML VIAL ONE (19:20)
[2024-05-17] MEDS ORDERED: IOVERSOL 320 MG/ML - 50 ML VIAL IV ONE (19:20)
[2024-05-17 22:00] VITALS: BP 146/78; O2SAT 97
[2024-05-18 00:58] VITALS: BP 151/80; O2SAT 97
[2024-05-18 08:00] VITALS: BP 135/78; O2SAT 95
[2024-05-18 08:50] LABS: HEMATOCRIT 42.3 % (39.0-48.0); HEMOGLOBIN 15.1 g/dL (13-16.00); MEAN CELL VOLUME 93.7 fL (80.0-100.00); MEAN CORPUSCULAR HEMOGLOBIN 33.4 pg (27.00-32.0); MEAN CORPUSCULAR HGB CONC 35.7 g/dl (32.0-36.0); PLATELET COUNT 253 K/uL (150-450); RED BLOOD COUNT 4.51 M/uL (4.00-6.00); RED CELL DISTRIBUTION WIDTH 13.1 % (11.5-14.5)
[2024-05-18] MEDS ORDERED: FLUCONAZOLE 100 MG TABLET PO SCH (09:00)
[2024-05-18] MEDS ORDERED: hydrALAZINE HCL 25 MG TABLET PO SCH (09:00)
[2024-05-18 09:25] LABS: CREATININE SERUM 2.17 mg/dL (0.70-1.30); GFR 31.39; MAGNESIUM 1.7 mg/dL (1.8-2.4); PHOSPHOROUS 2.5 mg/dL (2.5-4.9); POTASSIUM 3.44 mEq/L (3.5-5.1)
[2024-05-18] MEDS ORDERED: SODIUM CHLORIDE 0.45 % 1,000 ML IV SCH (12:00)
[2024-05-18] MEDS ORDERED: POTASSIUM CHLORIDE 20MEQ/100ML H2O PB IV NR ×2 (12:00→16:00)
[2024-05-18] MEDS ORDERED: MAGNESIUM SULFATE IN WATER 50 ML IV NR (12:00)
[2024-05-18] MEDS ORDERED: POTASSIUM CHLORIDE 8 MEQ TABLET PO STA (15:57)
[2024-05-18 16:00] VITALS: BP 135/84; O2SAT 96
[2024-05-18] MEDS ORDERED: AMLODIPINE BESY10 MG PO (16:39)
[2024-05-18] MEDS ORDERED: FLUCONAZOLE100 MG PO (16:39)
[2024-05-18] MEDS ORDERED: HYDRALAZINE HCL25 MG PO (16:39)
[2024-05-18] MEDS ORDERED: INTESTINEX680 M1 PO (16:39)
[2024-05-18] MEDS ORDERED: CIPRO500 MG PO (16:39)
== END 2024-05-18 17:03 | disposition home or self-care (01) | DRG 699 ==
LOC: ER 14:01 → SURH 22:36
PROVIDERS: Emergency Medicine; General Practice; ADMIT Internal Medicine Geriatric Medicine; ATTEND Internal Medicine Geriatric Medicine
PROC: BW21ZZZ Computerized Tomography (CT Scan) of Abdomen and Pelvis (ICD-10-PCS; principal; 2024-05-15)
PROC: 0T25X0Z Change Drainage Device in Kidney, External Approach (ICD-10-PCS; 2024-05-17)
DX: N13.9 Obstructive and reflux uropathy, unspecified (principal); C21.0 Malignant neoplasm of anus, unspecified; N17.9 Acute kidney failure, unspecified; C21.1 Malignant neoplasm of anal canal; T83.512A Infection and inflammatory reaction due to nephrostomy catheter, initial encounter; N39.0 Urinary tract infection, site not specified; N28.9 Disorder of kidney and ureter, unspecified; T83.098A Other mechanical complication of other urinary catheter, initial encounter; N18.30 Chronic kidney disease, stage 3 unspecified; N99.528 Other complication of incontinent external stoma of urinary tract; Y65.8 Other specified misadventures during surgical and medical care; I12.9 Hypertensive chronic kidney disease with stage 1 through stage 4 chronic kidney disease, or unspecified chronic kidney disease; B95.2 Enterococcus as the cause of diseases classified elsewhere; B96.5 Pseudomonas (aeruginosa) (mallei) (pseudomallei) as the cause of diseases classified elsewhere; B96.89 Other specified bacterial agents as the cause of diseases classified elsewhere

== ENCOUNTER 2024-09-20 21:08 | Inpatient (IN) | payer OTHER ==
[~2024-09-20] VITALS: Ht 152.4 cm; Wt 77.1 kg
[~2024-09-20 21:08] MED LIST changes: +CIPRO500 MG PO; +FLUCONAZOLE100 MG PO; +HYDRALAZINE HCL25 MG PO
--- NOTE | 2024-09-20 21:30 | NUR ---
PACIENTE ALERTA Y ORIENTADO X3 QUIEN REFIERE VENIR DOLOR DE ESPALDA BAJA Y ABDOMINAL. REFIERE VENIR CADA 3 MESES A CAUSA LA NEFROSTOMIA BILATERAL TIENDE A OBSTRUIRSE. ES PACIENTE DE DRA. MARIA ESTHER RAMIREZ Y DR. BARLOW.
[2024-09-20] MEDS ORDERED: ONDANSETRON HCL 2 MG/ML VIAL ONE (21:41)
[2024-09-20] MEDS ORDERED: KETOROLAC TROMETHAMINE 30 MG VIAL ONE (21:41)
[2024-09-20] MEDS ORDERED: CEFTRIAXONE SODIUM 1,000 MG VIAL ONE (21:42)
[2024-09-20] MEDS ORDERED: KETOROLAC TROMETHAMINE 30 MG VIAL IV ONE (21:45)
[2024-09-20] MEDS ORDERED: CEFTRIAXONE SODIUM 1,000 MG VIAL IV ONE (21:45)
[2024-09-20] MEDS ORDERED: ONDANSETRON HCL 2 MG/ML VIAL IV ONE (21:45)
--- NOTE | 2024-09-20 21:51 | NUR ---
SE ORIENTA PTE SOBRE TX MEDICO EL CUAL REFIERE ENTENDER.SE LE EXTRAEN MUESTRAS BAJO MEDIDAS ASEPTICAS,SE CANALIZA Y SE ADMINISTRAN MEDICAMENTOS.SE NOTIFICA CT PENDIENTE.
[2024-09-20 22:22] LABS: BASO % 0.2 % (0.1-1.2); EOS # 0.01 (0.04-0.54); EOS % 0.0 % (0.7-7.0); LYMPH # 0.61 (1.18-3.74); LYMPH % 2.8 % (19.3-53.1); MEAN PLATELET VOLUME 9.60 fl (9.4-12.4); MONO # 1.37 (0.24-0.82); MONO % 6.3 % (4.7-12.5); NEUT # 19.39 (1.56-6.13); NEUT % 89.8 % (34.0-71.1); RED CELL DISTRIBUTION WIDTH 12.3 % (11.6-14.4)
[2024-09-20 22:45] LABS: INR 1.11
[2024-09-20] MEDS ORDERED: ENOXAPARIN SODIUM 40 MG/0.4 ML SYRINGE SUBCUTANEO SCH (22:47)
[2024-09-20 22:53] LABS: ALT/SGPT 37.0 U/L (12-78); AST/SGOT 27.0 U/L (15-37); BILIRUBIN TOTAL 1.84 mg/dL (0.3-1.2); BUN CREA RATIO 9.0 (7.0-25.0); GFR 10.9; GLOBULINA 5.5 G/DL (2.4-3.5); GLUCOSE FASTING 114.0 mg/dL (65-100); OSMOLALITY SERUM 286.0 MOSM/KG (275-295)
[2024-09-20 22:57] LABS: CREATININE SERUM 5.41 mg/dL (0.70-1.30)
[2024-09-20] MEDS ORDERED: LACTOBACILLUS ACIDOPHILUS 1 CAP CAP PO SCH (22:58)
[2024-09-20] MEDS ORDERED: KETOROLAC TROMETHAMINE 30 MG VIAL IM PRN (23:00)
[2024-09-20] MEDS ORDERED: ACETAMINOPHEN 325 MG TABLET PO PRN (23:00)
[2024-09-20] MEDS ORDERED: SODIUM CHLORIDE 0.45 % 1,000 ML IV SCH (23:00)
[2024-09-20] MEDS ORDERED: ONDANSETRON HCL 4 MG in 0.9 % SODIUM CHLORIDE 50 ML IV PRN (23:00)
[2024-09-20] MEDS ORDERED: ENOXAPARIN SODIUM 40 MG/0.4 ML SYRINGE SUBCUTANEO ONE (23:32)
[2024-09-20] MEDS ORDERED: LACTOBACILLUS ACIDOPHILUS 1 CAP CAP PO ONE (23:33)
[2024-09-21] VITALS (9 sets, daily range): BP systolic 64–130; BP diastolic 40–78; O2SAT 96–98
[2024-09-21] MEDS ORDERED: PIPERACILLIN/TAZOBACTAM SODIUM 2.25 GM in DEXTROSE 5 % IN WATER 50 ML IV SCH
[2024-09-21] MEDS ORDERED: KETOROLAC TROMETHAMINE 30 MG VIAL ONE (04:55)
[2024-09-21] MEDS ORDERED: ENOXAPARIN SODIUM 30 MG/0.3 ML SYRINGE SUBCUTANEO SCH (09:00)
[2024-09-21] MEDS ORDERED: FAMOTIDINE/PF 20 MG/2 ML VIAL IV SCH (09:00)
[2024-09-21 15:37] LABS: BASO % 0.3 % (0.1-1.2); EOS # 0.01 (0.04-0.54); EOS % 0.0 % (0.7-7.0); LYMPH # 0.37 (1.18-3.74); LYMPH % 0.9 % (19.3-53.1); MEAN PLATELET VOLUME 10.50 fl (9.4-12.4); MONO # 0.79 (0.24-0.82); MONO % 1.8 % (4.7-12.5); NEUT # 40.08 (1.56-6.13); NEUT % 93.5 % (34.0-71.1); RED CELL DISTRIBUTION WIDTH 12.9 % (11.6-14.4)
[2024-09-21 16:13] LABS: BUN CREA RATIO 8.0 (7.0-25.0); GFR 7.74; GLUCOSE FASTING 98.0 mg/dL (65-100); OSMOLALITY SERUM 287.0 MOSM/KG (275-295)
[2024-09-21 16:19] LABS: CREATININE SERUM 7.28 mg/dL (0.70-1.30)
[2024-09-21] MEDS ORDERED: TRAMADOL HCL 50 MG TABLET PO PRN (16:30)
[2024-09-21] MEDS ORDERED: 0.9 % SODIUM CHLORIDE 1,000 ML IV SCH (16:45)
[2024-09-21 16:57] LABS: BAND MAN 20.0 %; LYMPHOCYTE MAN 1.0 %; METAMYELOCYTE 4.0 %; MONOCYTE MAN 3.0 %; MYELOCYTE 4.0 %; NEUTROPHILS MAN 68.0 %
[2024-09-21] MEDS ORDERED: NOREPINEPHRINE BITARTRATE 1 MG/ML AMPUL IV ONE (18:12)
[2024-09-21] MEDS ORDERED: POTASSIUM CHLORIDE 20MEQ/100ML H2O PB IV ONE ×2 (18:13→18:15)
[2024-09-21] MEDS ORDERED: NOREPINEPHRINE BITARTRATE 8 MG in DEXTROSE 5 % IN WATER 250 ML IV SCH (18:15)
[2024-09-21] MEDS ORDERED: MEROPENEM 1,000 MG VIAL IV ONE (18:45)
[2024-09-21] MEDS ORDERED: MEROPENEM 500 MG/VIAL VIAL IV SCH (21:00)
[2024-09-22] VITALS (17 sets, daily range): BP systolic 70–124; BP diastolic 47–73; O2SAT 93–100
[2024-09-22 07:50] LABS: ABG PH 7.284 (7.35-7.45); ABG PO2 116.4 mmHg (80-100); BICARBONATE 9.5 mmol/l (23-25)
[2024-09-22] MEDS ORDERED: LINEZOLID IN DEXTROSE 5% 600 MG/300 ML PIGGYBAG IV STA (08:29)
[2024-09-22] MEDS ORDERED: ONDANSETRON HCL 2 MG/ML VIAL ONE (08:35)
[2024-09-22 10:15] LABS: o2 50 %
[2024-09-22] MEDS ORDERED: Dextrose ORAL GEL 37.5GM GEL PO ONE (11:02)
[2024-09-22 11:09] LABS: BASO % 0.5 % (0.1-1.2); EOS # 0.01 (0.04-0.54); EOS % 0.0 % (0.7-7.0); LYMPH # 0.45 (1.18-3.74); LYMPH % 1.3 % (19.3-53.1); MEAN PLATELET VOLUME 10.90 fl (9.4-12.4); MONO # 0.67 (0.24-0.82); MONO % 1.9 % (4.7-12.5); NEUT # 32.72 (1.56-6.13); NEUT % 93.8 % (34.0-71.1); RED CELL DISTRIBUTION WIDTH 13.5 % (11.6-14.4)
[2024-09-22] MEDS ORDERED: DEXTROSE 50 % IN WATER 0.5 G/ML VIAL IV PRN (11:30)
[2024-09-22] MEDS ORDERED: DEXTROSE 5 % AND 0.9 % NACL 1,000 ML IV SCH (11:30)
[2024-09-22 11:37] LABS: BAND MAN 12.0 %; LYMPHOCYTE MAN 2.0 %; METAMYELOCYTE 1.0 %; MONOCYTE MAN 3.0 %; NEUTROPHILS MAN 82.0 %
[2024-09-22 12:11] LABS: ALT/SGPT 44.0 U/L (12-78); AST/SGOT 43.0 U/L (15-37); BILIRUBIN TOTAL 3.0 mg/dL (0.3-1.2); GLOBULINA 4.0 G/DL (2.4-3.5); GLUCOSE FASTING 58.0 mg/dL (65-100); OSMOLALITY SERUM 288.0 MOSM/KG (275-295); TSH 0.73 uIU/mL (0.358-3.74)
[2024-09-22 12:18] LABS: BUN CREA RATIO 8.0 (7.0-25.0); GFR 6.53
[2024-09-22 12:21] LABS: CREATININE SERUM 8.43 mg/dL (0.70-1.30)
[2024-09-22] MEDS ORDERED: SODIUM BICARBONATE 50MEQ/50ML VIAL IV SCH (13:00)
[2024-09-22] MEDS ORDERED: GABAPENTIN 300 MG CAPSULE PO ONE ×2 (19:51→20:00)
[2024-09-22] MEDS ORDERED: TRAMADOL HCL 50 MG TABLET PO PRN (19:57)
[2024-09-22] MEDS ORDERED: LINEZOLID IN DEXTROSE 5% 600 MG/300 ML PIGGYBAG IV SCH (21:00)
[2024-09-22] MEDS ORDERED: MORPHINE SULFATE 2 MG/ML CARTRIDGE IV ONE (22:00)
[2024-09-23] VITALS (23 sets, daily range): BP systolic 76–111; BP diastolic 38–72; O2SAT 92–100
[2024-09-23 08:10] LABS: ALT/SGPT 51.0 U/L (12-78); AST/SGOT 52.0 U/L (15-37); BILIRUBIN TOTAL 3.7 mg/dL (0.3-1.2); GFR 6.09; GLOBULINA 3.7 G/DL (2.4-3.5); GLUCOSE FASTING 98.0 mg/dL (65-100)
[2024-09-23 08:17] LABS: BUN CREA RATIO 10.0 (7.0-25.0); OSMOLALITY SERUM 300.0 MOSM/KG (275-295)
[2024-09-23 08:19] LABS: CREATININE SERUM 8.96 mg/dL (0.70-1.30)
[2024-09-23] MEDS ORDERED: 0.9 % SODIUM CHLORIDE 1,000 ML IV SCH (08:45)
[2024-09-23] MEDS ORDERED: DEXTROSE 5 % AND 0.9 % NACL 500 ML IV ONE (09:30)
[2024-09-23 12:04] LABS: BASO % 0.1 % (0.1-1.2); EOS # 0.02 (0.04-0.54); EOS % 0.1 % (0.7-7.0); LYMPH # 0.58 (1.18-3.74); LYMPH % 2.5 % (19.3-53.1); MEAN PLATELET VOLUME 11.40 fl (9.4-12.4); MONO # 0.88 (0.24-0.82); MONO % 3.7 % (4.7-12.5); NEUT # 21.94 (1.56-6.13); NEUT % 93.0 % (34.0-71.1); RED CELL DISTRIBUTION WIDTH 13.4 % (11.6-14.4)
[2024-09-23] MEDS ORDERED: METOPROLOL TARTRATE 5MG/5ML AMPUL IV ONE ×2 (12:52→13:00)
[2024-09-23] MEDS ORDERED: VASOPRESSIN 40 UNITS in 0.9 % SODIUM CHLORIDE 100 ML IV SCH (13:15)
[2024-09-23] MEDS ORDERED: AMIODARONE HCL 50 MG/ML AMPUL IV ONE (14:21)
[2024-09-23] MEDS ORDERED: AMIODARONE HCL 50 MG/ML AMPUL IV NR (15:00)
[2024-09-23] MEDS ORDERED: AMIODARONE HCL 900 MG in DEXTROSE 5 % IN WATER 500 ML IV SCH (15:00)
[2024-09-23] MEDS ORDERED: ENOXAPARIN SODIUM 30 MG/0.3 ML SYRINGE SUBCUTANEO SCH (17:00)
[2024-09-23] MEDS ORDERED: AMIODARONE HCL 518 ML IV SCH (21:00)
[2024-09-23 21:55] LABS: ABG PH 7.303 (7.35-7.45); ABG PO2 122.9 mmHg (80-100); BICARBONATE 17.0 mmol/l (23-25)
[2024-09-23 21:56] LABS: o2 50 %
[2024-09-24] VITALS (23 sets, daily range): BP systolic 77–146; BP diastolic 50–99; O2SAT 92–100
[2024-09-24 07:59] LABS: BASO % 0.2 % (0.1-1.2); EOS # 0.08 (0.04-0.54); EOS % 0.3 % (0.7-7.0); LYMPH # 0.87 (1.18-3.74); LYMPH % 3.5 % (19.3-53.1); MEAN PLATELET VOLUME 12.30 fl (9.4-12.4); MONO # 1.23 (0.24-0.82); MONO % 5.0 % (4.7-12.5); NEUT # 21.57 (1.56-6.13); NEUT % 87.3 % (34.0-71.1); RED CELL DISTRIBUTION WIDTH 13.6 % (11.6-14.4)
[2024-09-24 08:13] LABS: ERYTHROCYTE SEDIMENTATION RATE 128 mm/hr (0-20)
[2024-09-24 08:21] LABS: ALT/SGPT 62.0 U/L (12-78); AST/SGOT 127.0 U/L (15-37); BILIRUBIN TOTAL 4.2 mg/dL (0.3-1.2); GLOBULINA 3.4 G/DL (2.4-3.5); GLUCOSE FASTING 118.0 mg/dL (65-100)
[2024-09-24 08:32] LABS: BUN CREA RATIO 11.0 (7.0-25.0); GFR 5.78; OSMOLALITY SERUM 297.0 MOSM/KG (275-295)
[2024-09-24 08:34] LABS: CREATININE SERUM 9.37 mg/dL (0.70-1.30)
[2024-09-24 08:49] LABS: BAND MAN 12.0 %; EOSINOPHIL MAN 2.0 %; LYMPHOCYTE MAN 4.0 %; MONOCYTE MAN 4.0 %; NEUTROPHILS MAN 78.0 %
[2024-09-24 10:00] LABS: ABG PH 7.315 (7.35-7.45); ABG PO2 88.2 mmHg (80-100); BICARBONATE 15.3 mmol/l (23-25)
[2024-09-24 11:20] LABS: o2 50 %
[2024-09-24] MEDS ORDERED: HYDROCORTISONE SODIUM SUCC/PF 100 MG VIAL IV NR (12:25)
[2024-09-24] MEDS ORDERED: AA 4.25%/CAL/LYTES/DEXT 5% 1,000 ML PERIFERAL SCH (17:00)
[2024-09-24] MEDS ORDERED: HYDROCORTISONE SODIUM SUCC/PF 50 MG/ML ML IV SCH (18:00)
[2024-09-24] MEDS ORDERED: SODIUM BICARBONATE 50MEQ/50ML VIAL IV ONE (21:01)
[2024-09-24] MEDS ORDERED: SODIUM BICARBONATE 150 MEQ in DEXTROSE 5 % IN WATER 1,000 ML IV SCH (21:15)
[2024-09-24 21:35] LABS: ABG PH 7.458 (7.35-7.45)
[2024-09-24 21:37] LABS: ABG PO2 226.6 mmHg (80-100); BICARBONATE 13.0 mmol/l (23-25)
[2024-09-24 21:38] LABS: o2 80 %
[2024-09-25] VITALS (17 sets, daily range): BP systolic 98–129; BP diastolic 55–80; O2SAT 96–100
[2024-09-25 02:50] LABS: BASO % 0.2 % (0.1-1.2); EOS # 0.03 (0.04-0.54); EOS % 0.1 % (0.7-7.0); LYMPH # 1.20 (1.18-3.74); LYMPH % 4.2 % (19.3-53.1); MEAN PLATELET VOLUME 10.80 fl (9.4-12.4); MONO # 1.57 (0.24-0.82); MONO % 5.5 % (4.7-12.5); NEUT # 22.49 (1.56-6.13); NEUT % 79.2 % (34.0-71.1)
[2024-09-25 03:36] LABS: ALT/SGPT 63.0 U/L (12-78); AST/SGOT 129.0 U/L (15-37); BILIRUBIN TOTAL 5.97 mg/dL (0.3-1.2); GFR 5.46; GLOBULINA 3.3 G/DL (2.4-3.5); GLUCOSE FASTING 139.0 mg/dL (65-100)
[2024-09-25 04:02] LABS: BUN CREA RATIO 12.0 (7.0-25.0); OSMOLALITY SERUM 302.0 MOSM/KG (275-295)
[2024-09-25 04:03] LABS: CREATININE SERUM 9.85 mg/dL (0.70-1.30)
[2024-09-25 04:10] LABS: BAND MAN 1.0 %; LYMPHOCYTE MAN 2.0 %; MONOCYTE MAN 7.0 %; MYELOCYTE 2.0 %; NEUTROPHILS MAN 88.0 %; RED CELL DISTRIBUTION WIDTH 17.8 % (11.6-14.4)
[2024-09-25] MEDS ORDERED: (FF) Daptomycin 50 MG/ML IV STA (09:54)
[2024-09-25] MEDS ORDERED: FLUCONAZOLE IN NACL,ISO-OSM 100 MG/50 ML PIGGYBAG IV STA (10:02)
[2024-09-25] MEDS ORDERED: DEXTROSE 5%-WATER 1,000ML IV.SOLN ONE (10:27)
[2024-09-25] MEDS ORDERED: SODIUM BICARBONATE 150 MEQ in DEXTROSE 5 % IN WATER 1,000 ML IV SCH (11:00)
[2024-09-25] MEDS ORDERED: AZTREONAM 1,000 MG VIAL IV STA (11:03)
[2024-09-25] MEDS ORDERED: ALBUMIN HUMAN 100 ML VIAL IV ONE (11:30)
[2024-09-25 12:31] LABS: ALT/SGPT 64.0 U/L (12-78); AST/SGOT 135.0 U/L (15-37); BILIRUBIN TOTAL 6.45 mg/dL (0.3-1.2); GFR 5.36; GLOBULINA 3.3 G/DL (2.4-3.5); GLUCOSE FASTING 118.0 mg/dL (65-100); PHOSPHOKINASE CREATININE 175.0 U/L (39-308)
[2024-09-25 12:35] LABS: BUN CREA RATIO 14.0 (7.0-25.0); OSMOLALITY SERUM 308.0 MOSM/KG (275-295)
[2024-09-25 12:36] LABS: CREATININE SERUM 10.0 mg/dL (0.70-1.30)
[2024-09-25] MEDS ORDERED: SODIUM CHLORIDE/ALOE VERA 14.1 GM GEL..GRAM. NASAL SCH (13:00)
[2024-09-25] MEDS ORDERED: NOREPINEPHRINE BITARTRATE 8 MG in DEXTROSE 5 % IN WATER 250 ML IV SCH (15:30)
[2024-09-25] MEDS ORDERED: ALBUMIN HUMAN 100 ML VIAL IV SCH (17:00)
[2024-09-25] MEDS ORDERED: HEPARIN SODIUM,PORCINE 5,000 UNITS/ML VIAL IJ ONE (19:30)
[2024-09-25] MEDS ORDERED: DIPHENHYDRAMINE HCL 25 MG CAPSULE PO ONE (21:00)
[2024-09-25] MEDS ORDERED: AZTREONAM 1,000 MG VIAL IV SCH (21:00)
[2024-09-25] MEDS ORDERED: METHYLPREDNISOLONE SOD SUCC 40 MG VIAL IV ONE (21:00)
[2024-09-25 21:28] LABS: ALT/SGPT 70.0 U/L (12-78); AST/SGOT 161.0 U/L (15-37); BILIRUBIN TOTAL 7.53 mg/dL (0.3-1.2); GFR 8.6; GLOBULINA 3.4 G/DL (2.4-3.5); GLUCOSE FASTING 121.0 mg/dL (65-100)
[2024-09-25 21:50] LABS: BUN CREA RATIO 13.0 (7.0-25.0); OSMOLALITY SERUM 289.0 MOSM/KG (275-295)
[2024-09-25 21:51] LABS: CREATININE SERUM 6.64 mg/dL (0.70-1.30)
[2024-09-26] VITALS (16 sets, daily range): BP systolic 101–135; BP diastolic 57–77; O2SAT 95–100
[2024-09-26 04:31] LABS: ABG PH 7.452 (7.35-7.45); ABG PO2 82.4 mmHg (80-100); BICARBONATE 18.6 mmol/l (23-25)
[2024-09-26 04:39] LABS: o2 60 %
[2024-09-26] MEDS ORDERED: MEROPENEM 500 MG/VIAL VIAL IV SCH (09:00)
[2024-09-26 10:02] LABS: BASO % 0.2 % (0.1-1.2); EOS # 0.04 (0.04-0.54); EOS % 0.1 % (0.7-7.0); LYMPH # 1.81 (1.18-3.74); LYMPH % 5.3 % (19.3-53.1); MEAN PLATELET VOLUME 10.90 fl (9.4-12.4); MONO # 1.35 (0.24-0.82); MONO % 4.0 % (4.7-12.5); NEUT # 23.95 (1.56-6.13); NEUT % 70.8 % (34.0-71.1); RED CELL DISTRIBUTION WIDTH 18.6 % (11.6-14.4)
[2024-09-26 11:00] LABS: GFR 7.65; GLUCOSE FASTING 104.0 mg/dL (65-100)
[2024-09-26 11:05] LABS: BUN CREA RATIO 14.0 (7.0-25.0); OSMOLALITY SERUM 294.0 MOSM/KG (275-295)
[2024-09-26 11:07] LABS: CREATININE SERUM 7.35 mg/dL (0.70-1.30)
[2024-09-26] MEDS ORDERED: FLUCONAZOLE IN NACL,ISO-OSM 2 MG/ML ML IV SCH (12:00)
[2024-09-26] MEDS ORDERED: AMIODARONE HCL 200 MG TABLET PO SCH (12:08)
[2024-09-26] MEDS ORDERED: EMOLLIENTS 6 OZ BOTTLE TOP SCH (13:00)
[2024-09-27] VITALS (12 sets, daily range): BP systolic 122–154; BP diastolic 60–88; O2SAT 94–100
[2024-09-27 06:18] LABS: BASO % 0.2 % (0.1-1.2); EOS # 0.05 (0.04-0.54); EOS % 0.1 % (0.7-7.0); LYMPH # 2.09 (1.18-3.74); LYMPH % 5.5 % (19.3-53.1); MEAN PLATELET VOLUME 11.10 fl (9.4-12.4); MONO # 1.16 (0.24-0.82); MONO % 3.1 % (4.7-12.5); NEUT # 26.94 (1.56-6.13); NEUT % 71.3 % (34.0-71.1); RED CELL DISTRIBUTION WIDTH 18.6 % (11.6-14.4)
[2024-09-27 06:45] LABS: ALT/SGPT 99.0 U/L (12-78); AST/SGOT 218.0 U/L (15-37); GLUCOSE FASTING 99.0 mg/dL (65-100)
[2024-09-27 07:09] LABS: OSMOLALITY SERUM 303.0 MOSM/KG (275-295)
[2024-09-27 07:10] LABS: BILIRUBIN TOTAL 12.87 mg/dL (0.3-1.2); BILIRUBIN,CONJUGATED 10.48 mg/dL (0.0-0.2); BUN CREA RATIO 16.0 (7.0-25.0); GFR 7.18
[2024-09-27 07:11] LABS: CREATININE SERUM 7.77 mg/dL (0.70-1.30)
[2024-09-27 07:49] LABS: BAND MAN 10.0 %; LYMPHOCYTE MAN 8.0 %; METAMYELOCYTE 9.0 %; MONOCYTE MAN 4.0 %; NEUTROPHILS MAN 68.0 %
[2024-09-27] MEDS ORDERED: NOREPINEPHRINE BITARTRATE 8 MG in DEXTROSE 5 % IN WATER 250 ML IV SCH (08:30)
[2024-09-27] MEDS ORDERED: ONDANSETRON HCL 2 MG/ML VIAL IV NR (11:53)
[2024-09-27] MEDS ORDERED: HEPARIN SODIUM,PORCINE 5,000 UNITS/ML VIAL IV NR (12:00)
[2024-09-27 13:06] LABS: BASO % 0.1 % (0.1-1.2); EOS # 0.04 (0.04-0.54); EOS % 0.1 % (0.7-7.0); LYMPH # 2.33 (1.18-3.74); LYMPH % 4.4 % (19.3-53.1); MEAN PLATELET VOLUME 11.40 fl (9.4-12.4); MONO # 1.43 (0.24-0.82); MONO % 2.7 % (4.7-12.5); NEUT # 38.86 (1.56-6.13); NEUT % 72.7 % (34.0-71.1); RED CELL DISTRIBUTION WIDTH 17.1 % (11.6-14.4)
[2024-09-27] MEDS ORDERED: ALBUMIN HUMAN 100 ML VIAL IV SCH (17:00)
[2024-09-27] MEDS ORDERED: MEROPENEM 500 MG/VIAL VIAL IV SCH (17:00)
[2024-09-27] MEDS ORDERED: (FF) Daptomycin 50 MG/ML IV SCH (17:00)
[2024-09-27] MEDS ORDERED: TRAMADOL HCL 50 MG TABLET PO PRN (20:15)
[2024-09-28 04:12] VITALS: BP 140/73
[2024-09-28 07:20] VITALS: BP 141/73; O2SAT 97
[2024-09-28 10:53] LABS: BASO % 0.3 % (0.1-1.2); EOS # 0.02 (0.04-0.54); EOS % 0.0 % (0.7-7.0); LYMPH # 1.50 (1.18-3.74); LYMPH % 3.2 % (19.3-53.1); MEAN PLATELET VOLUME 10.90 fl (9.4-12.4); MONO # 0.90 (0.24-0.82); MONO % 1.9 % (4.7-12.5); NEUT # 37.00 (1.56-6.13); NEUT % 79.1 % (34.0-71.1); RED CELL DISTRIBUTION WIDTH 17.7 % (11.6-14.4)
[2024-09-28 11:40] LABS: BAND MAN 7.0 %; LYMPHOCYTE MAN 1.0 %; METAMYELOCYTE 1.0 %; MONOCYTE MAN 6.0 %; NEUTROPHILS MAN 85.0 %
[2024-09-28] MEDS ORDERED: MORPHINE SULFATE 4 MG/ML VIAL IV ONE (11:45)
[2024-09-28 11:47] LABS: ALT/SGPT 117.0 U/L (12-78); AST/SGOT 236.0 U/L (15-37); GLOBULINA 3.2 G/DL (2.4-3.5); GLUCOSE FASTING 102.0 mg/dL (65-100)
[2024-09-28 11:48] LABS: BUN CREA RATIO 17.0 (7.0-25.0); GFR 8.49; OSMOLALITY SERUM 302.0 MOSM/KG (275-295)
[2024-09-28 11:51] LABS: BILIRUBIN TOTAL 17.72 mg/dL (0.3-1.2); CREATININE SERUM 6.72 mg/dL (0.70-1.30)
[2024-09-28 12:07] VITALS: BP 127/70; O2SAT 100
[2024-09-28] MEDS ORDERED: ORPHENADRINE CITRATE 100 MG TABLET PO NR (14:15)
[2024-09-28 15:18] VITALS: BP 134/79; O2SAT 98
[2024-09-28] MEDS ORDERED: ORPHENADRINE CITRATE 100 MG TABLET PO SCH (17:00)
[2024-09-28 19:53] VITALS: BP 123/70; O2SAT 97
[2024-09-28 23:18] VITALS: BP 122/72; O2SAT 97
[2024-09-29] VITALS (13 sets, daily range): BP systolic 90–149; BP diastolic 52–88; O2SAT 91–100
[2024-09-29] MEDS ORDERED: ORPHENADRINE CITRATE 100 MG TABLET PO SCH (02:00)
[2024-09-29] MEDS ORDERED: CIPROFLOXACIN IN 5 % DEXTROSE 400 MG/200 ML PIGGYBAG IV STA (08:22)
[2024-09-29] MEDS ORDERED: METOPROLOL SUCCINATE 50 MG TAB.SR.24H PO SCH (09:00)
[2024-09-29 09:08] LABS: hav igm Negative (Negative); hep b c Negative (Negative); hep b s ag Negative (Negative)
[2024-09-29] MEDS ORDERED: ANIDULAFUNGIN 100 MG VIAL IV NR (10:00)
[2024-09-29 10:12] LABS: BASO % 0.3 % (0.1-1.2); EOS # 0.01 (0.04-0.54); EOS % 0.0 % (0.7-7.0); LYMPH # 0.93 (1.18-3.74); LYMPH % 2.2 % (19.3-53.1); MEAN PLATELET VOLUME 11.00 fl (9.4-12.4); MONO # 0.92 (0.24-0.82); MONO % 2.2 % (4.7-12.5); NEUT # 34.90 (1.56-6.13); NEUT % 83.3 % (34.0-71.1); RED CELL DISTRIBUTION WIDTH 18.5 % (11.6-14.4)
[2024-09-29 11:30] LABS: ALT/SGPT 105.0 U/L (12-78); AST/SGOT 163.0 U/L (15-37); GLUCOSE FASTING 100.0 mg/dL (65-100)
[2024-09-29 11:48] LABS: BILIRUBIN,CONJUGATED 15.88 mg/dL (0.0-0.2); BUN CREA RATIO 19.0 (7.0-25.0); GFR 7.33; OSMOLALITY SERUM 315.0 MOSM/KG (275-295)
[2024-09-29 11:51] LABS: BILIRUBIN TOTAL 19.91 mg/dL (0.3-1.2)
[2024-09-29 11:52] LABS: CREATININE SERUM 7.63 mg/dL (0.70-1.30)
[2024-09-29] MEDS ORDERED: OxyCODONE HCL 5 MG TABLET (ROXICODONE) PO PRN (12:00)
[2024-09-29] MEDS ORDERED: MORPHINE SULFATE 4 MG/ML CARTRIDGE IV PRN (12:00)
[2024-09-29] MEDS ORDERED: HEPARIN SODIUM,PORCINE 5,000 UNITS/ML VIAL IV NR (14:30)
[2024-09-29] MEDS ORDERED: fentaNYL CITRATE 50 MCG/ML AMPUL IV PUSH NR (16:30)
[2024-09-29] MEDS ORDERED: CIPROFLOXACIN IN 5 % DEXTROSE 400 MG/200 ML PIGGYBAG IV SCH (17:00)
[2024-09-29] MEDS ORDERED: HYDROCORTISONE SODIUM SUCC/PF 50 MG/ML ML IV SCH (18:00)
[2024-09-29 20:24] LABS: ABG PH 7.466 (7.35-7.45); ABG PO2 219.8 mmHg (80-100); BICARBONATE 20.4 mmol/l (23-25)
[2024-09-29 20:30] LABS: o2 100 %
[2024-09-30] VITALS (11 sets, daily range): BP systolic 105–132; BP diastolic 52–70; O2SAT 94–100
[2024-09-30] MEDS ORDERED: CIPROFLOXACIN IN 5 % DEXTROSE 400 MG/200 ML PIGGYBAG IV SCH (09:00)
[2024-09-30] MEDS ORDERED: ANIDULAFUNGIN 100 MG VIAL IV SCH (09:00)
[2024-09-30 11:34] LABS: ABG PH 7.528 (7.35-7.45); ABG PO2 153.9 mmHg (80-100)
[2024-09-30 11:35] LABS: BICARBONATE 21.5 mmol/l (23-25)
[2024-09-30 11:36] LABS: o2 50 %
[2024-09-30 11:58] LABS: BASO % 0.2 % (0.1-1.2); EOS # 0.01 (0.04-0.54); EOS % 0.0 % (0.7-7.0); LYMPH # 0.76 (1.18-3.74); LYMPH % 2.1 % (19.3-53.1); MEAN PLATELET VOLUME 11.00 fl (9.4-12.4); MONO # 0.87 (0.24-0.82); MONO % 2.4 % (4.7-12.5); NEUT # 31.70 (1.56-6.13); NEUT % 86.6 % (34.0-71.1); RED CELL DISTRIBUTION WIDTH 16.0 % (11.6-14.4)
[2024-09-30 12:34] LABS: ALT/SGPT 103.0 U/L (12-78); AST/SGOT 170.0 U/L (15-37); GLOBULINA 2.7 G/DL (2.4-3.5); GLUCOSE FASTING 95.0 mg/dL (65-100); OSMOLALITY SERUM 297.0 MOSM/KG (275-295)
[2024-09-30 12:36] LABS: BUN CREA RATIO 17.0 (7.0-25.0); GFR 13.95
[2024-09-30 12:38] LABS: BILIRUBIN TOTAL 22.71 mg/dL (0.3-1.2); CREATININE SERUM 4.37 mg/dL (0.70-1.30)
[2024-10-01] VITALS (7 sets, daily range): BP systolic 103–178; BP diastolic 55–74; O2SAT 95–100
[2024-10-01 10:04] LABS: BASO % 0.3 % (0.1-1.2); EOS # 0.01 (0.04-0.54); EOS % 0.0 % (0.7-7.0); LYMPH # 0.45 (1.18-3.74); LYMPH % 1.4 % (19.3-53.1); MEAN PLATELET VOLUME 10.70 fl (9.4-12.4); MONO # 0.73 (0.24-0.82); MONO % 2.2 % (4.7-12.5); NEUT # 29.51 (1.56-6.13); NEUT % 90.3 % (34.0-71.1); RED CELL DISTRIBUTION WIDTH 17.9 % (11.6-14.4)
[2024-10-01 10:34] LABS: BAND MAN 2.0 %; METAMYELOCYTE 1.0 %; MONOCYTE MAN 3.0 %; NEUTROPHILS MAN 94.0 %
[2024-10-01 10:40] LABS: ALT/SGPT 105.0 U/L (12-78); AST/SGOT 171.0 U/L (15-37); GLOBULINA 2.7 G/DL (2.4-3.5); GLUCOSE FASTING 83.0 mg/dL (65-100)
[2024-10-01 10:43] LABS: BUN CREA RATIO 19.0 (7.0-25.0); GFR 10.0; OSMOLALITY SERUM 311.0 MOSM/KG (275-295)
[2024-10-01 10:44] LABS: BILIRUBIN TOTAL 23.28 mg/dL (0.3-1.2)
[2024-10-01 10:45] LABS: CREATININE SERUM 5.83 mg/dL (0.70-1.30)
[2024-10-01] MEDS ORDERED: OxyCODONE HCL 5 MG TABLET (ROXICODONE) PO PRN (16:45)
[2024-10-01] MEDS ORDERED: MORPHINE SULFATE 4 MG/ML CARTRIDGE IV PRN (16:45)
[2024-10-02] VITALS (9 sets, daily range): BP systolic 107–135; BP diastolic 54–70; O2SAT 92–99
[2024-10-02 08:53] LABS: BUN CREA RATIO 18.0 (7.0-25.0); GFR 8.08; GLUCOSE FASTING 89.0 mg/dL (65-100); OSMOLALITY SERUM 313.0 MOSM/KG (275-295)
[2024-10-02 08:57] LABS: CREATININE SERUM 7.01 mg/dL (0.70-1.30)
[2024-10-02 12:51] LABS: BASO % 0.3 % (0.1-1.2); EOS # 0.01 (0.04-0.54); EOS % 0.0 % (0.7-7.0); LYMPH # 0.27 (1.18-3.74); LYMPH % 0.9 % (19.3-53.1); MEAN PLATELET VOLUME 10.90 fl (9.4-12.4); MONO # 0.61 (0.24-0.82); MONO % 2.0 % (4.7-12.5); NEUT # 27.81 (1.56-6.13); NEUT % 91.2 % (34.0-71.1); RED CELL DISTRIBUTION WIDTH 16.7 % (11.6-14.4)
[2024-10-02 15:07] LABS: BUN CREA RATIO 17.0 (7.0-25.0); GFR 12.7; GLUCOSE FASTING 100.0 mg/dL (65-100); OSMOLALITY SERUM 298.0 MOSM/KG (275-295)
[2024-10-02 15:08] LABS: CREATININE SERUM 4.74 mg/dL (0.70-1.30)
[2024-10-03 04:02] VITALS: BP 113/56; O2SAT 98
[2024-10-03 06:59] LABS: BASO % 0.2 % (0.1-1.2); EOS # 0.09 (0.04-0.54); EOS % 0.3 % (0.7-7.0); LYMPH # 0.46 (1.18-3.74); LYMPH % 1.6 % (19.3-53.1); MEAN PLATELET VOLUME 10.50 fl (9.4-12.4); MONO # 1.05 (0.24-0.82); MONO % 3.6 % (4.7-12.5); NEUT # 25.96 (1.56-6.13); NEUT % 89.8 % (34.0-71.1); RED CELL DISTRIBUTION WIDTH 17.2 % (11.6-14.4)
[2024-10-03 07:05] VITALS: BP 117/63; O2SAT 100
[2024-10-03 07:23] LABS: INR 1.23
[2024-10-03 08:06] LABS: LYMPHOCYTE MAN 2.0 %; MONOCYTE MAN 6.0 %; NEUTROPHILS MAN 92.0 %
[2024-10-03 08:12] LABS: GLUCOSE FASTING 157.0 mg/dL (65-100)
[2024-10-03 08:13] LABS: BUN CREA RATIO 18.0 (7.0-25.0); GFR 9.86
[2024-10-03 08:14] LABS: OSMOLALITY SERUM 309.0 MOSM/KG (275-295)
[2024-10-03 08:16] LABS: ALT/SGPT 83.0 U/L (12-78); AST/SGOT 120.0 U/L (15-37)
[2024-10-03 08:20] LABS: CREATININE SERUM 5.9 mg/dL (0.70-1.30)
[2024-10-03 08:21] LABS: BILIRUBIN TOTAL 21.41 mg/dL (0.3-1.2); BILIRUBIN,CONJUGATED 17.67 mg/dL (0.0-0.2)
[2024-10-03] MEDS ORDERED: PANTOPRAZOLE SODIUM 40 MG TABLET.DR PO NR (09:00)
[2024-10-03 12:00] VITALS: BP 121/59; O2SAT 99
[2024-10-03 15:23] VITALS: BP 113/64; O2SAT 98
[2024-10-03 20:00] VITALS: BP 106/61; O2SAT 100
[2024-10-03] MEDS ORDERED: HYDROCORTISONE SODIUM SUCC/PF 50 MG/ML ML IV SCH (21:00)
[2024-10-03] MEDS ORDERED: SIMETHICONE 125 MG CAPSULE PO SCH (21:00)
[2024-10-03 23:39] VITALS: BP 102/64; O2SAT 95
[2024-10-04] VITALS (10 sets, daily range): BP systolic 89–130; BP diastolic 52–86; O2SAT 98–100
[2024-10-04] MEDS ORDERED: PANTOPRAZOLE SODIUM 40 MG TABLET.DR PO SCH (06:00)
[2024-10-04 07:09] LABS: ALT/SGPT 77.0 U/L (12-78); AST/SGOT 112.0 U/L (15-37); GLUCOSE FASTING 90.0 mg/dL (65-100)
[2024-10-04 07:22] LABS: BASO % 0.2 % (0.1-1.2); EOS # 0.02 (0.04-0.54); EOS % 0.1 % (0.7-7.0); LYMPH # 0.34 (1.18-3.74); LYMPH % 1.4 % (19.3-53.1); MEAN PLATELET VOLUME 10.80 fl (9.4-12.4); MONO # 1.32 (0.24-0.82); MONO % 5.4 % (4.7-12.5); NEUT # 21.58 (1.56-6.13); NEUT % 88.9 % (34.0-71.1); RED CELL DISTRIBUTION WIDTH 17.5 % (11.6-14.4)
[2024-10-04 07:29] LABS: BUN CREA RATIO 18.0 (7.0-25.0); GFR 7.85; OSMOLALITY SERUM 314.0 MOSM/KG (275-295)
[2024-10-04 07:31] LABS: BILIRUBIN TOTAL 20.77 mg/dL (0.3-1.2); BILIRUBIN,CONJUGATED 17.53 mg/dL (0.0-0.2); CREATININE SERUM 7.19 mg/dL (0.70-1.30)
[2024-10-04] MEDS ORDERED: METOPROLOL SUCCINATE 25 MG TAB.SR.24H PO SCH (09:00)
[2024-10-04] MEDS ORDERED: NOREPINEPHRINE BITARTRATE 8 MG in DEXTROSE 5 % IN WATER 250 ML IV SCH (10:30)
[2024-10-04] MEDS ORDERED: MORPHINE SULFATE 4 MG/ML VIAL IV PRN (20:30)
[2024-10-05 04:01] VITALS: BP 100/56; O2SAT 97
[2024-10-05 07:13] VITALS: BP 108/65; O2SAT 100
[2024-10-05 08:07] LABS: BASO % 0.1 % (0.1-1.2); EOS # 0.07 (0.04-0.54); EOS % 0.3 % (0.7-7.0); LYMPH # 0.40 (1.18-3.74); LYMPH % 1.8 % (19.3-53.1); MEAN PLATELET VOLUME 10.60 fl (9.4-12.4); MONO # 1.87 (0.24-0.82); MONO % 8.3 % (4.7-12.5); NEUT # 19.37 (1.56-6.13); NEUT % 85.7 % (34.0-71.1); RED CELL DISTRIBUTION WIDTH 18.0 % (11.6-14.4)
[2024-10-05] MEDS ORDERED: SOD FERRIC GLUC COMPLX/SUCROSE 62.5 MG in 0.9 % SODIUM CHLORIDE 50 ML IV SCH (09:00)
[2024-10-05] MEDS ORDERED: HYDROCORTISONE SODIUM SUCC/PF 50 MG/ML ML IV SCH (09:00)
[2024-10-05 09:01] LABS: ALT/SGPT 67.0 U/L (12-78); AST/SGOT 92.0 U/L (15-37); GLUCOSE FASTING 87.0 mg/dL (65-100)
[2024-10-05 09:07] LABS: OSMOLALITY SERUM 307.0 MOSM/KG (275-295)
[2024-10-05 09:08] LABS: BUN CREA RATIO 16.0 (7.0-25.0); GFR 8.2
[2024-10-05 09:10] LABS: BILIRUBIN TOTAL 18.53 mg/dL (0.3-1.2); BILIRUBIN,CONJUGATED 15.1 mg/dL (0.0-0.2)
[2024-10-05 09:11] LABS: CREATININE SERUM 6.92 mg/dL (0.70-1.30)
[2024-10-05 12:00] VITALS: BP 114/75; O2SAT 97
[2024-10-05 15:06] VITALS: BP 105/66; O2SAT 97
[2024-10-05 20:00] VITALS: BP 126/65; O2SAT 99
[2024-10-05 23:10] VITALS: BP 116/69; O2SAT 100
[2024-10-06] VITALS (15 sets, daily range): BP systolic 90–123; BP diastolic 49–76; O2SAT 95–100
[2024-10-06] MEDS ORDERED: ALBUMIN HUMAN 100 ML VIAL IV SCH (05:00)
[2024-10-06 14:05] LABS: BASO % 0.1 % (0.1-1.2); EOS # 0.11 (0.04-0.54); EOS % 0.4 % (0.7-7.0); LYMPH # 0.26 (1.18-3.74); LYMPH % 0.9 % (19.3-53.1); MEAN PLATELET VOLUME 10.30 fl (9.4-12.4); MONO # 1.98 (0.24-0.82); MONO % 6.9 % (4.7-12.5); NEUT # 25.75 (1.56-6.13); NEUT % 89.2 % (34.0-71.1); RED CELL DISTRIBUTION WIDTH 17.9 % (11.6-14.4)
[2024-10-06 15:00] LABS: ALT/SGPT 70.0 U/L (12-78); AST/SGOT 112.0 U/L (15-37); GLOBULINA 3.5 G/DL (2.4-3.5); GLUCOSE FASTING 78.0 mg/dL (65-100)
[2024-10-06 15:37] LABS: OSMOLALITY SERUM 299.0 MOSM/KG (275-295)
[2024-10-06 15:39] LABS: BUN CREA RATIO 14.0 (7.0-25.0); GFR 9.24
[2024-10-06 15:42] LABS: CREATININE SERUM 6.24 mg/dL (0.70-1.30)
[2024-10-06 15:43] LABS: BILIRUBIN TOTAL 20.84 mg/dL (0.3-1.2)
[2024-10-06] MEDS ORDERED: TEMAZEPAM 15 MG CAPSULE PO PRN (16:30)
[2024-10-07 04:00] VITALS: BP 93/52; O2SAT 100
[2024-10-07 07:18] VITALS: BP 98/55; O2SAT 99
[2024-10-07 12:00] VITALS: BP 92/56; O2SAT 98
[2024-10-07 15:37] VITALS: O2SAT 98
[2024-10-07 20:04] VITALS: BP 96/67; O2SAT 98
[2024-10-07 23:33] VITALS: BP 97/52; O2SAT 100
[2024-10-08 04:01] VITALS: BP 108/58; O2SAT 100
[2024-10-08 07:30] VITALS: BP 104/61; O2SAT 99
[2024-10-08 08:26] LABS: ALT/SGPT 71.0 U/L (12-78); AST/SGOT 113.0 U/L (15-37); GLUCOSE FASTING 74.0 mg/dL (65-100)
[2024-10-08 08:43] LABS: BASO % 0.2 % (0.1-1.2); EOS # 0.24 (0.04-0.54); EOS % 1.3 % (0.7-7.0); LYMPH # 0.38 (1.18-3.74); LYMPH % 2.0 % (19.3-53.1); MEAN PLATELET VOLUME 10.60 fl (9.4-12.4); MONO # 1.46 (0.24-0.82); MONO % 7.7 % (4.7-12.5); NEUT # 16.55 (1.56-6.13); NEUT % 87.0 % (34.0-71.1); RED CELL DISTRIBUTION WIDTH 18.2 % (11.6-14.4)
[2024-10-08 08:53] LABS: OSMOLALITY SERUM 316.0 MOSM/KG (275-295)
[2024-10-08 08:54] LABS: BUN CREA RATIO 16.0 (7.0-25.0); GFR 6.74
[2024-10-08 08:56] LABS: BILIRUBIN,CONJUGATED 16.19 mg/dL (0.0-0.2); CREATININE SERUM 8.21 mg/dL (0.70-1.30)
[2024-10-08 08:57] LABS: BILIRUBIN TOTAL 20.73 mg/dL (0.3-1.2)
[2024-10-08 11:00] VITALS: BP 99/60; O2SAT 100
[2024-10-08 15:12] VITALS: BP 107/55; O2SAT 98
[2024-10-08] MEDS ORDERED: ZINC OXIDE 30 GM,SILVER SULFADIAZINE 50 GM,NYSTATIN 30 GM TOP SCH (17:00)
[2024-10-08 20:08] VITALS: BP 106/62; O2SAT 98
[2024-10-08 23:10] VITALS: BP 92/54; O2SAT 98
[2024-10-09] VITALS (12 sets, daily range): BP systolic 89–153; BP diastolic 47–77; O2SAT 96–100
[2024-10-09] MEDS ORDERED: HEPARIN SODIUM,PORCINE 5,000 UNITS/ML VIAL IV ONE (11:15)
[2024-10-09 13:51] LABS: BASO % 0.2 % (0.1-1.2); EOS # 0.29 (0.04-0.54); EOS % 1.5 % (0.7-7.0); LYMPH # 0.33 (1.18-3.74); LYMPH % 1.7 % (19.3-53.1); MEAN PLATELET VOLUME 10.20 fl (9.4-12.4); MONO # 1.47 (0.24-0.82); MONO % 7.4 % (4.7-12.5); NEUT # 17.05 (1.56-6.13); NEUT % 86.1 % (34.0-71.1); RED CELL DISTRIBUTION WIDTH 17.2 % (11.6-14.4)
[2024-10-09 14:46] LABS: ALT/SGPT 79.0 U/L (12-78); AST/SGOT 116.0 U/L (15-37); GLUCOSE FASTING 93.0 mg/dL (65-100)
[2024-10-09 14:54] LABS: BUN CREA RATIO 13.0 (7.0-25.0); GFR 9.38; OSMOLALITY SERUM 297.0 MOSM/KG (275-295)
[2024-10-09 14:58] LABS: BILIRUBIN TOTAL 21.81 mg/dL (0.3-1.2); BILIRUBIN,CONJUGATED 18.3 mg/dL (0.0-0.2); CREATININE SERUM 6.16 mg/dL (0.70-1.30)
[2024-10-10 03:57] VITALS: BP 98/51; O2SAT 98
[2024-10-10] MEDS ORDERED: OxyCODONE HCL 5 MG TABLET (ROXICODONE) PO PRN (06:00)
[2024-10-10] MEDS ORDERED: MORPHINE SULFATE 4 MG/ML VIAL IV PRN (06:00)
[2024-10-10 07:33] VITALS: BP 98/55; O2SAT 98
[2024-10-10] MEDS ORDERED: MORPHINE SULFATE 4 MG/ML CARTRIDGE IV PRN (09:45)
[2024-10-10 12:00] VITALS: BP 98/62; O2SAT 98
[2024-10-10 15:49] VITALS: BP 99/53; O2SAT 99
[2024-10-10 19:00] VITALS: BP 107/60; O2SAT 99
[2024-10-10 23:59] VITALS: BP 98/56; O2SAT 100
[2024-10-11] VITALS (12 sets, daily range): BP systolic 100–126; BP diastolic 52–72; O2SAT 97–100
[2024-10-11] MEDS ORDERED: HEPARIN SODIUM,PORCINE 5,000 UNITS/ML VIAL ONE (09:11)
[2024-10-11] MEDS ORDERED: HEPARIN SODIUM,PORCINE 5,000 UNITS/ML VIAL IV ONE (10:00)
[2024-10-11 11:38] LABS: BASO % 0.5 % (0.1-1.2); EOS # 0.34 (0.04-0.54); EOS % 1.6 % (0.7-7.0); LYMPH # 0.40 (1.18-3.74); LYMPH % 1.8 % (19.3-53.1); MEAN PLATELET VOLUME 10.20 fl (9.4-12.4); MONO # 1.83 (0.24-0.82); MONO % 8.4 % (4.7-12.5); NEUT # 17.81 (1.56-6.13); NEUT % 81.9 % (34.0-71.1); RED CELL DISTRIBUTION WIDTH 18.3 % (11.6-14.4)
[2024-10-11 12:07] LABS: ALT/SGPT 77.0 U/L (12-78); AST/SGOT 116.0 U/L (15-37); GLOBULINA 3.9 G/DL (2.4-3.5); GLUCOSE FASTING 84.0 mg/dL (65-100); OSMOLALITY SERUM 299.0 MOSM/KG (275-295)
[2024-10-11 12:10] LABS: BUN CREA RATIO 12.0 (7.0-25.0); GFR 10.99
[2024-10-11 12:11] LABS: CREATININE SERUM 5.37 mg/dL (0.70-1.30)
[2024-10-11 12:12] LABS: BILIRUBIN TOTAL 21.81 mg/dL (0.3-1.2)
[2024-10-12] VITALS (16 sets, daily range): BP systolic 87–132; BP diastolic 46–73; O2SAT 95–100
[2024-10-12] MEDS ORDERED: HYDROCORTISONE SODIUM SUCC/PF 50 MG/ML ML IV STA (10:56)
[2024-10-12] MEDS ORDERED: CASPOFUNGIN ACETATE 70 MG IV STA (13:03)
[2024-10-12] MEDS ORDERED: AZTREONAM 2,000 MG VIAL IV STA (13:03)
[2024-10-12] MEDS ORDERED: LINEZOLID IN DEXTROSE 5% 600 MG/300 ML PIGGYBAG IV STA (13:34)
[2024-10-12 14:54] LABS: URINE BLOOD LARGE; URINE LEUKOCYTE LARGE; URINE NITRATE POSITIVE
[2024-10-12 14:55] LABS: URINE BLOOD LARGE; URINE KETONE TRACE (NEGATIVE); URINE LEUKOCYTE MODERATE; URINE NITRATE POSITIVE; URINE UROBILINOGEN 1.0 E.U./dl
[2024-10-12 15:08] LABS: URINE APPEARANCE BLOODY; URINE BILIRRUBIN LARGE (NEGATIVE); URINE COLOR RED; URINE GLUCOSE >=1000 MG/DL (NEGATIVE); URINE KETONE >=80 (NEGATIVE); URINE PROTEIN >=300 (NEGATIVE); URINE UROBILINOGEN >= 8.0 E.U./dl
[2024-10-12 15:09] LABS: URINE APPEARANCE TURBID; URINE BACTERIA MANY; URINE BILIRRUBIN LARGE (NEGATIVE); URINE COLOR BROWN; URINE GLUCOSE 100 MG/DL (NEGATIVE); URINE PROTEIN >=300 (NEGATIVE); URINE RBC LOADED /HPF; URINE WBC LOADED /hpf
[2024-10-12 15:10] LABS: URINE BACTERIA MANY; URINE WBC LOADED /hpf
[2024-10-12] MEDS ORDERED: LINEZOLID IN DEXTROSE 5% 600 MG/300 ML PIGGYBAG IV SCH (21:00)
[2024-10-12] MEDS ORDERED: HYDROCORTISONE SODIUM SUCC/PF 50 MG/ML ML IV SCH (21:00)
[2024-10-13 07:40] VITALS: BP 113/62; O2SAT 99
[2024-10-13 07:45] LABS: BASO % 0.5 % (0.1-1.2); EOS # 0.01 (0.04-0.54); EOS % 0.1 % (0.7-7.0); LYMPH # 0.38 (1.18-3.74); LYMPH % 2.1 % (19.3-53.1); MEAN PLATELET VOLUME 10.00 fl (9.4-12.4); MONO # 1.00 (0.24-0.82); MONO % 5.6 % (4.7-12.5); NEUT # 15.03 (1.56-6.13); NEUT % 84.9 % (34.0-71.1); RED CELL DISTRIBUTION WIDTH 18.8 % (11.6-14.4)
[2024-10-13 08:02] LABS: ALT/SGPT 87.0 U/L (12-78); AST/SGOT 139.0 U/L (15-37); GLOBULINA 3.9 G/DL (2.4-3.5); GLUCOSE FASTING 110.0 mg/dL (65-100)
[2024-10-13 08:03] LABS: BUN CREA RATIO 13.0 (7.0-25.0); GFR 7.15; OSMOLALITY SERUM 314.0 MOSM/KG (275-295)
[2024-10-13 08:06] LABS: BILIRUBIN TOTAL 18.56 mg/dL (0.3-1.2); CREATININE SERUM 7.8 mg/dL (0.70-1.30)
[2024-10-13 08:37] LABS: BAND MAN 5.0 %; NEUTROPHILS MAN 81.0 %
[2024-10-13 08:38] LABS: METAMYELOCYTE 7.0 %; MONOCYTE MAN 4.0 %; MYELOCYTE 3.0 %
[2024-10-13] MEDS ORDERED: CASPOFUNGIN ACETATE 50 MG IV SCH ×2 (09:00→18:00)
[2024-10-13] MEDS ORDERED: AZTREONAM 2,000 MG VIAL IV SCH ×2 (09:00→17:00)
[2024-10-13] MEDS ORDERED: MIDODRINE HCL 5 MG TABLET PO NR (10:00)
[2024-10-13 12:00] VITALS: BP 110/64; O2SAT 99
[2024-10-13] MEDS ORDERED: HEPARIN SODIUM,PORCINE 5,000 UNITS/ML VIAL ONE (15:32)
[2024-10-13 15:35] VITALS: BP 129/58; O2SAT 100
[2024-10-13] MEDS ORDERED: MIDODRINE HCL 5 MG TABLET PO SCH (17:00)
[2024-10-13 20:00] VITALS: BP 103/57; O2SAT 97
[2024-10-13 23:06] VITALS: BP 98/57; O2SAT 98
[2024-10-13 23:11] VITALS: BP 98/57; O2SAT 98
[2024-10-14 03:57] VITALS: BP 107/58; O2SAT 96
[2024-10-14 07:10] VITALS: BP 118/62; O2SAT 97
[2024-10-14 09:30] LABS: BASO % 0.3 % (0.1-1.2); EOS # 0.03 (0.04-0.54); EOS % 0.2 % (0.7-7.0); LYMPH # 0.51 (1.18-3.74); LYMPH % 3.3 % (19.3-53.1); MEAN PLATELET VOLUME 10.20 fl (9.4-12.4); MONO # 0.97 (0.24-0.82); MONO % 6.3 % (4.7-12.5); NEUT # 12.75 (1.56-6.13); NEUT % 82.1 % (34.0-71.1); RED CELL DISTRIBUTION WIDTH 19.2 % (11.6-14.4)
[2024-10-14 10:57] LABS: BUN CREA RATIO 12.0 (7.0-25.0); GFR 9.33; GLUCOSE FASTING 99.0 mg/dL (65-100); OSMOLALITY SERUM 304.0 MOSM/KG (275-295)
[2024-10-14 11:36] LABS: CREATININE SERUM 6.19 mg/dL (0.70-1.30)
[2024-10-14 12:00] VITALS: BP 99/59; O2SAT 100
[2024-10-14 12:20] LABS: BLAST MAN 2.0 %; LYMPHOCYTE MAN 2.0 %; METAMYELOCYTE 3.0 %; MONOCYTE MAN 3.0 %; NEUTROPHILS MAN 90.0 %
[2024-10-14 15:34] VITALS: BP 110/59; O2SAT 94
[2024-10-14 20:49] VITALS: BP 107/50; O2SAT 97
[2024-10-14] MEDS ORDERED: MORPHINE SULFATE 4 MG/ML CARTRIDGE IV PRN (21:00)
[2024-10-14] MEDS ORDERED: TEMAZEPAM 15 MG CAPSULE PO PRN (21:00)
[2024-10-14] MEDS ORDERED: OxyCODONE HCL 5 MG TABLET (ROXICODONE) PO PRN (21:00)
[2024-10-14 23:34] VITALS: BP 109/58; O2SAT 98
[2024-10-15 04:00] VITALS: BP 89/64; O2SAT 97
[2024-10-15 07:11] VITALS: BP 109/58; O2SAT 100
[2024-10-15 11:59] VITALS: BP 115/52; O2SAT 100
[2024-10-15 15:27] VITALS: BP 108/54; O2SAT 98
[2024-10-15 20:41] VITALS: BP 110/50; O2SAT 98
[2024-10-15 23:00] VITALS: BP 115/55; O2SAT 99
[2024-10-16 04:05] VITALS: BP 104/63; O2SAT 97
[2024-10-16 06:16] LABS: BASO % 0.2 % (0.1-1.2); EOS # 0.00 (0.04-0.54); EOS % 0.0 % (0.7-7.0); LYMPH # 0.55 (1.18-3.74); LYMPH % 2.9 % (19.3-53.1); MEAN PLATELET VOLUME 11.00 fl (9.4-12.4); MONO # 1.01 (0.24-0.82); MONO % 5.2 % (4.7-12.5); NEUT # 16.65 (1.56-6.13); NEUT % 86.5 % (34.0-71.1)
[2024-10-16 07:03] VITALS: BP 109/63; O2SAT 100
[2024-10-16 07:50] LABS: BAND MAN 4.0 %; LYMPHOCYTE MAN 2.0 %; METAMYELOCYTE 3.0 %; MONOCYTE MAN 3.0 %; NEUTROPHILS MAN 88.0 %; RED CELL DISTRIBUTION WIDTH 19.0 % (11.6-14.4)
[2024-10-16 11:00] VITALS: BP 117/62; O2SAT 98
[2024-10-16] MEDS ORDERED: HYDROCORTISONE SODIUM SUCC/PF 50 MG/ML ML IV SCH (13:00)
[2024-10-16] MEDS ORDERED: ONDANSETRON HCL 2 MG/ML VIAL ONE (13:15)
[2024-10-16] MEDS ORDERED: ONDANSETRON HCL 4 MG in 0.9 % SODIUM CHLORIDE 50 ML IV PRN (13:30)
[2024-10-16 16:00] VITALS: BP 121/76; O2SAT 98
[2024-10-17 00:20] VITALS: BP 104/67; O2SAT 95
[2024-10-17 08:00] VITALS: BP 119/75; O2SAT 97
[2024-10-17] MEDS ORDERED: FAMOTIDINE/PF 20 MG/2 ML VIAL IV STA (12:42)
[2024-10-17] MEDS ORDERED: FAMOTIDINE/PF 20 MG/2 ML VIAL IV SCH (21:00)
[2024-10-18 01:46] VITALS: BP 128/74; O2SAT 99
[2024-10-18 08:00] VITALS: BP 107/63; O2SAT 98
[2024-10-18] MEDS ORDERED: HEPARIN SODIUM,PORCINE 5,000 UNITS/ML VIAL IV ONE (08:45)
[2024-10-18 13:30] LABS: BASO % 0.1 % (0.1-1.2); EOS # 0.13 (0.04-0.54); EOS % 0.9 % (0.7-7.0); LYMPH # 0.60 (1.18-3.74); LYMPH % 4.0 % (19.3-53.1); MEAN PLATELET VOLUME 10.20 fl (9.4-12.4); MONO # 1.17 (0.24-0.82); MONO % 7.7 % (4.7-12.5); NEUT # 12.64 (1.56-6.13); NEUT % 83.3 % (34.0-71.1); RED CELL DISTRIBUTION WIDTH 18.8 % (11.6-14.4)
[2024-10-18 14:08] LABS: ALT/SGPT 191.0 U/L (12-78); AST/SGOT 222.0 U/L (15-37); BILIRUBIN TOTAL 7.32 mg/dL (0.3-1.2); BILIRUBIN,CONJUGATED 5.5 mg/dL (0.0-0.2); BUN CREA RATIO 13.0 (7.0-25.0); CREATININE SERUM 3.74 mg/dL (0.70-1.30); GFR 16.69; GLUCOSE FASTING 101.0 mg/dL (65-100); OSMOLALITY SERUM 296.0 MOSM/KG (275-295)
[2024-10-18] MEDS ORDERED: POTASSIUM CHLORIDE 20MEQ/100ML H2O PB IV NR (14:45)
[2024-10-18 16:43] VITALS: O2SAT 67
[2024-10-18 18:00] VITALS: BP 120/74; O2SAT 98
[2024-10-19 01:47] VITALS: BP 119/73; O2SAT 100
[2024-10-19 08:00] VITALS: BP 92/52; O2SAT 95
[2024-10-19] MEDS ORDERED: PANTOPRAZOLE SODIUM 40 MG/VIAL VIAL IV STA (13:36)
[2024-10-19 17:30] VITALS: BP 119/68; O2SAT 99
[2024-10-20 01:52] VITALS: BP 113/52; O2SAT 97
[2024-10-20] MEDS ORDERED: HEPARIN SODIUM,PORCINE 5,000 UNITS/ML VIAL IV STA (08:03)
[2024-10-20 08:24] VITALS: BP 111/64; O2SAT 97
[2024-10-20] MEDS ORDERED: PREDNISONE 10 MG TABLET PO SCH (09:00)
[2024-10-20 11:16] LABS: BASO % 0.3 % (0.1-1.2); EOS # 0.52 (0.04-0.54); EOS % 3.6 % (0.7-7.0); LYMPH # 0.61 (1.18-3.74); LYMPH % 4.2 % (19.3-53.1); MEAN PLATELET VOLUME 9.50 fl (9.4-12.4); MONO # 0.83 (0.24-0.82); MONO % 5.8 % (4.7-12.5); NEUT # 12.00 (1.56-6.13); NEUT % 83.5 % (34.0-71.1); RED CELL DISTRIBUTION WIDTH 17.9 % (11.6-14.4)
[2024-10-20 11:46] LABS: ALT/SGPT 142.0 U/L (12-78); AST/SGOT 135.0 U/L (15-37); BILIRUBIN TOTAL 5.75 mg/dL (0.3-1.2); BILIRUBIN,CONJUGATED 4.05 mg/dL (0.0-0.2); BUN CREA RATIO 11.0 (7.0-25.0); CREATININE SERUM 3.32 mg/dL (0.70-1.30); GFR 19.15; GLUCOSE FASTING 108.0 mg/dL (65-100); OSMOLALITY SERUM 292.0 MOSM/KG (275-295)
[2024-10-20] MEDS ORDERED: POTASSIUM CHLORIDE 20MEQ/100ML H2O PB IV NR (12:45)
[2024-10-20] MEDS ORDERED: BUPIVACAINE HCL/MPF 0.5% 30ML VIAL ONE (15:23)
[2024-10-20] MEDS ORDERED: IOVERSOL 320 MG/ML - 50 ML VIAL IV ONE (15:23)
[2024-10-20 17:44] VITALS: BP 133/80; O2SAT 97
[2024-10-20] MEDS ORDERED: CEFAZOLIN SODIUM 1,000 MG VIAL ONE (18:13)
[2024-10-20] MEDS ORDERED: HEPARIN SODIUM,PORCINE/PF 100 UNIT/ML SYRINGE IV ONE (18:27)
[2024-10-20] MEDS ORDERED: HEPARIN SODIUM,PORCINE 500 UNITS/5 ML VIAL IV ONE (18:45)
[2024-10-20 20:15] VITALS: BP 125/67; O2SAT 97
[2024-10-21 01:17] VITALS: BP 132/77; O2SAT 98
[2024-10-21 01:22] VITALS: O2SAT 97
[2024-10-21 08:00] VITALS: BP 135/72; O2SAT 99
[2024-10-21 16:00] VITALS: BP 137/80; O2SAT 97
[2024-10-22 00:08] VITALS: BP 134/74; O2SAT 96
[2024-10-22 08:20] LABS: GLUCOSE FASTING 89.0 mg/dL (65-100); OSMOLALITY SERUM 311.0 MOSM/KG (275-295)
[2024-10-22 08:25] VITALS: BP 129/72; O2SAT 98
[2024-10-22] MEDS ORDERED: PREDNISONE 5 MG TABLET PO SCH (09:00)
[2024-10-22 09:20] LABS: BUN CREA RATIO 13.0 (7.0-25.0); GFR 12.64
[2024-10-22 09:22] LABS: CREATININE SERUM 4.76 mg/dL (0.70-1.30)
[2024-10-22 16:00] VITALS: BP 142/82; O2SAT 100
[2024-10-22 23:54] VITALS: BP 125/81; O2SAT 99
[2024-10-23] MEDS ORDERED: MORPHINE SULFATE 4 MG/ML CARTRIDGE IV PRN (01:00)
[2024-10-23 08:23] VITALS: BP 109/72; O2SAT 99
[2024-10-23 12:39] LABS: BASO % 0.1 % (0.1-1.2); EOS # 0.10 (0.04-0.54); EOS % 0.7 % (0.7-7.0); LYMPH # 0.78 (1.18-3.74); LYMPH % 5.3 % (19.3-53.1); MEAN PLATELET VOLUME 9.70 fl (9.4-12.4); MONO # 1.38 (0.24-0.82); MONO % 9.4 % (4.7-12.5); NEUT # 12.16 (1.56-6.13); NEUT % 83.1 % (34.0-71.1); RED CELL DISTRIBUTION WIDTH 17.9 % (11.6-14.4)
[2024-10-23 15:01] LABS: BUN CREA RATIO 10.0 (7.0-25.0); CREATININE SERUM 3.25 mg/dL (0.70-1.30); GFR 19.63; GLUCOSE FASTING 85.0 mg/dL (65-100); OSMOLALITY SERUM 287.0 MOSM/KG (275-295)
[2024-10-23 16:00] VITALS: BP 104/75; O2SAT 98
[2024-10-23] MEDS ORDERED: POTASSIUM CHLORIDE 20MEQ/100ML H2O PB IV NR (17:00)
[2024-10-24 00:57] VITALS: BP 106/70; O2SAT 97
[2024-10-24 08:57] VITALS: BP 90/60; O2SAT 98
[2024-10-24 16:04] VITALS: BP 121/75; O2SAT 99
[2024-10-25 01:41] VITALS: BP 131/78; O2SAT 98
[2024-10-25 08:54] VITALS: BP 122/70; O2SAT 98
[2024-10-25] MEDS ORDERED: TUBERCULIN,PURIF.PROT.DERIV. 5 TU/0.1 ML VIAL ID ONE (10:30)
[2024-10-25 12:53] LABS: COVID-19 AG NEGATIVE (NEGATIVE)
[2024-10-25 14:08] LABS: BASO % 0.5 % (0.1-1.2); EOS # 0.43 (0.04-0.54); EOS % 5.6 % (0.7-7.0); LYMPH # 0.66 (1.18-3.74); LYMPH % 8.6 % (19.3-53.1); MEAN PLATELET VOLUME 9.40 fl (9.4-12.4); MONO # 1.25 (0.24-0.82); NEUT # 5.03 (1.56-6.13); NEUT % 65.7 % (34.0-71.1); RED CELL DISTRIBUTION WIDTH 16.8 % (11.6-14.4)
[2024-10-25 15:03] LABS: BUN CREA RATIO 9.0 (7.0-25.0); CREATININE SERUM 2.84 mg/dL (0.70-1.30); GFR 22.93; GLUCOSE FASTING 76.0 mg/dL (65-100); OSMOLALITY SERUM 287.0 MOSM/KG (275-295)
[2024-10-25] MEDS ORDERED: POTASSIUM CHLORIDE 20MEQ/100ML H2O PB IV NR (16:00)
[2024-10-25 16:32] LABS: MONO % 16.3 % (4.7-12.5)
[2024-10-25 16:51] LABS: EOSINOPHIL MAN 7.0 %; LYMPHOCYTE MAN 10.0 %; MONOCYTE MAN 15.0 %; NEUTROPHILS MAN 66.0 %
[2024-10-25 16:59] VITALS: BP 106/68; O2SAT 97
[2024-10-26 01:51] VITALS: BP 115/72; O2SAT 98
[2024-10-26 08:00] VITALS: BP 113/66; O2SAT 97
[2024-10-26] MEDS ORDERED: DEXTROSE 50 % IN WATER 0.5 G/ML VIAL IV ONE (13:35)
[2024-10-26] MEDS ORDERED: BUPIVACAINE HCL/MPF 0.5% 30ML VIAL ONE (15:27)
[2024-10-26] MEDS ORDERED: IOVERSOL 320 MG/ML - 50 ML VIAL IV ONE (17:01)
[2024-10-26] MEDS ORDERED: LIDOCAINE HCL 1%/EPINEPHRINE 20ML VIAL IJ ONE (17:01)
[2024-10-27] VITALS: BP 110/68; O2SAT 100
[2024-10-27 07:14] LABS: BUN CREA RATIO 10.0 (7.0-25.0); GFR 15.14; GLUCOSE FASTING 78.0 mg/dL (65-100); OSMOLALITY SERUM 299.0 MOSM/KG (275-295)
[2024-10-27 07:32] LABS: CREATININE SERUM 4.07 mg/dL (0.70-1.30)
[2024-10-27 08:00] VITALS: BP 136/86; O2SAT 95
[2024-10-27] MEDS ORDERED: POTASSIUM CHLORIDE 20MEQ/100ML H2O PB IV NR (09:30)
[2024-10-27 11:19] LABS: BASO % 0.9 % (0.1-1.2); EOS # 0.66 (0.04-0.54); EOS % 8.2 % (0.7-7.0); LYMPH # 0.92 (1.18-3.74); LYMPH % 11.4 % (19.3-53.1); MEAN PLATELET VOLUME 9.30 fl (9.4-12.4); MONO # 1.28 (0.24-0.82); NEUT # 4.55 (1.56-6.13); NEUT % 56.2 % (34.0-71.1); RED CELL DISTRIBUTION WIDTH 17.2 % (11.6-14.4)
[2024-10-27 11:20] LABS: MONO % 15.8 % (4.7-12.5)
[2024-10-27 16:17] VITALS: BP 127/78; O2SAT 98
[2024-10-27] MEDS ORDERED: NYSTATIN TOP SCH (17:00)
[2024-10-27] MEDS ORDERED: HYDROCORTISONE TOP SCH (17:00)
[2024-10-28 00:30] VITALS: BP 103/52; O2SAT 100
[2024-10-28 08:00] VITALS: BP 111/72; O2SAT 98
[2024-10-28] MEDS ORDERED: POTASSIUM BICARBONATE/CIT AC 25 MEQ TABLET.EFF PO SCH (09:00)
[2024-10-28 17:53] VITALS: BP 132/79; O2SAT 100
[2024-10-29 01:04] VITALS: BP 129/71; O2SAT 96
[2024-10-29 07:44] VITALS: BP 130/72; O2SAT 98
[2024-10-29 08:16] LABS: BASO % 1.3 % (0.1-1.2); EOS # 0.93 (0.04-0.54); EOS % 9.4 % (0.7-7.0); LYMPH # 1.13 (1.18-3.74); LYMPH % 11.4 % (19.3-53.1); MEAN PLATELET VOLUME 9.30 fl (9.4-12.4); MONO # 0.87 (0.24-0.82); MONO % 8.8 % (4.7-12.5); NEUT # 6.05 (1.56-6.13); NEUT % 61.4 % (34.0-71.1); RED CELL DISTRIBUTION WIDTH 16.9 % (11.6-14.4)
[2024-10-29 08:44] LABS: ALT/SGPT 45.0 U/L (12-78); AST/SGOT 50.0 U/L (15-37); BILIRUBIN TOTAL 2.29 mg/dL (0.3-1.2); BILIRUBIN,CONJUGATED 1.9 mg/dL (0.0-0.2); GLUCOSE FASTING 90.0 mg/dL (65-100); OSMOLALITY SERUM 295.0 MOSM/KG (275-295)
[2024-10-29 08:47] LABS: BUN CREA RATIO 8.0 (7.0-25.0); CREATININE SERUM 3.93 mg/dL (0.70-1.30); GFR 15.76
[2024-10-29 09:52] LABS: BAND MAN 4.0 %; BASOPHIL MAN 0.0 %; EOSINOPHIL MAN 11.0 %; LYMPHOCYTE MAN 8.0 %; METAMYELOCYTE 8.0 %; MONOCYTE MAN 8.0 %; NEUTROPHILS MAN 53.0 %
[2024-10-29 09:53] LABS: ERYTHROCYTE SEDIMENTATION RATE 43 mm/hr (0-20)
[2024-10-29] MEDS ORDERED: POTASSIUM PHOS,M-BASIC-D-BASIC 15 MM in 0.9 % SODIUM CHLORIDE 250 ML IV ONE (12:00)
[2024-10-29 16:00] VITALS: BP 128/76; O2SAT 99
[2024-10-30 00:45] VITALS: BP 112/66; O2SAT 100
[2024-10-30] MEDS ORDERED: HEPARIN SODIUM,PORCINE 5,000 UNITS/ML VIAL IV ONE (07:30)
[2024-10-30 08:00] VITALS: BP 111/66; O2SAT 98
[2024-10-30] MEDS ORDERED: FUSION PLUS CA1 EACH PO ×2 (14:27)
[2024-10-30] MEDS ORDERED: ABANEU-SL TABL1 EACH SL ×2 (14:27)
[2024-10-30] MEDS ORDERED: INTESTINEX680 M1 PO (14:27)
[2024-10-30] MEDS ORDERED: PEPCID AC20 MG PO ×2 (14:27)
[2024-10-30] MEDS ORDERED: MIDODRINE HCL5 MG PO ×2 (14:27)
== END 2024-10-30 17:50 | disposition home or self-care (01) | DRG 698 ==
LOC: ER 21:40 → MEDI 22:43 → SEC-K 22:43 → ICU 22:43 → SURH 22:43 → MEDI 09-21 11:01 → ICU 09-22 13:14 → MEDJ 10-16 12:21 → ICU 10-16 12:27 → SURH 10-16 15:06 → MEDJ 10-16 16:14 → SURH 10-16 16:58
PROVIDERS: General Practice; Internal Medicine; Internal Medicine Gastroenterology; Internal Medicine Infectious Disease; Internal Medicine Nephrology; Internal Medicine Pulmonary Disease; Radiology Vascular & Interventional Radiology; ADMIT Internal Medicine Geriatric Medicine; ATTEND Internal Medicine Geriatric Medicine
PROC: BW21ZZZ Computerized Tomography (CT Scan) of Abdomen and Pelvis (ICD-10-PCS; 2024-09-20)
PROC: BW28ZZZ Computerized Tomography (CT Scan) of Head (ICD-10-PCS; 2024-09-21)
PROC: B246ZZZ Ultrasonography of Right and Left Heart (ICD-10-PCS; 2024-09-21)
PROC: B345ZZZ Ultrasonography of Bilateral Common Carotid Arteries (ICD-10-PCS; 2024-09-21)
PROC: B348ZZZ Ultrasonography of Bilateral Internal Carotid Arteries (ICD-10-PCS; 2024-09-21)
PROC: 4A12X4Z Monitoring of Cardiac Electrical Activity, External Approach (ICD-10-PCS; 2024-09-21)
PROC: 4A033R1 Measurement of Arterial Saturation, Peripheral, Percutaneous Approach (ICD-10-PCS; 2024-09-22)
PROC: 05HB33Z Insertion of Infusion Device into Right Basilic Vein, Percutaneous Approach (ICD-10-PCS; 2024-09-22)
PROC: 30233N1 Transfusion of Nonautologous Red Blood Cells into Peripheral Vein, Percutaneous Approach (ICD-10-PCS; 2024-09-24)
PROC: 3E0336Z Introduction of Nutritional Substance into Peripheral Vein, Percutaneous Approach (ICD-10-PCS; 2024-09-24)
PROC: 5A1D70Z Performance of Urinary Filtration, Intermittent, Less than 6 Hours Per Day (ICD-10-PCS; 2024-09-25)
PROC: 04HK03Z Insertion of Infusion Device into Right Femoral Artery, Open Approach (ICD-10-PCS; 2024-09-25)
PROC: 5A1D70Z Performance of Urinary Filtration, Intermittent, Less than 6 Hours Per Day (ICD-10-PCS; 2024-09-27)
PROC: BW40ZZZ Ultrasonography of Abdomen (ICD-10-PCS; 2024-09-27)
PROC: 5A1D70Z Performance of Urinary Filtration, Intermittent, Less than 6 Hours Per Day (ICD-10-PCS; 2024-09-29)
PROC: 0W9F3ZZ Drainage of Abdominal Wall, Percutaneous Approach (ICD-10-PCS; 2024-09-29)
PROC: 5A1D70Z Performance of Urinary Filtration, Intermittent, Less than 6 Hours Per Day (ICD-10-PCS; 2024-09-30)
PROC: 5A1D70Z Performance of Urinary Filtration, Intermittent, Less than 6 Hours Per Day (ICD-10-PCS; 2024-10-02)
PROC: 5A1D70Z Performance of Urinary Filtration, Intermittent, Less than 6 Hours Per Day (ICD-10-PCS; 2024-10-04)
PROC: 02H633Z Insertion of Infusion Device into Right Atrium, Percutaneous Approach (ICD-10-PCS; 2024-10-04)
PROC: 5A1D70Z Performance of Urinary Filtration, Intermittent, Less than 6 Hours Per Day (ICD-10-PCS; 2024-10-06)
PROC: 5A1D70Z Performance of Urinary Filtration, Intermittent, Less than 6 Hours Per Day (ICD-10-PCS; 2024-10-09)
PROC: 5A1D70Z Performance of Urinary Filtration, Intermittent, Less than 6 Hours Per Day (ICD-10-PCS; 2024-10-11)
PROC: BW40ZZZ Ultrasonography of Abdomen (ICD-10-PCS; 2024-10-12)
PROC: 5A1D70Z Performance of Urinary Filtration, Intermittent, Less than 6 Hours Per Day (ICD-10-PCS; 2024-10-13)
PROC: 5A1D70Z Performance of Urinary Filtration, Intermittent, Less than 6 Hours Per Day (ICD-10-PCS; 2024-10-16)
PROC: 5A1D70Z Performance of Urinary Filtration, Intermittent, Less than 6 Hours Per Day (ICD-10-PCS; 2024-10-18)
PROC: 5A1D70Z Performance of Urinary Filtration, Intermittent, Less than 6 Hours Per Day (ICD-10-PCS; 2024-10-20)
PROC: 5A1D70Z Performance of Urinary Filtration, Intermittent, Less than 6 Hours Per Day (ICD-10-PCS; 2024-10-23)
PROC: 5A1D70Z Performance of Urinary Filtration, Intermittent, Less than 6 Hours Per Day (ICD-10-PCS; 2024-10-25)
PROC: 0T25X0Z Change Drainage Device in Kidney, External Approach (ICD-10-PCS; principal; 2024-10-26 15:45)
PROC: 5A1D70Z Performance of Urinary Filtration, Intermittent, Less than 6 Hours Per Day (ICD-10-PCS; 2024-10-27)
PROC: 5A1D70Z Performance of Urinary Filtration, Intermittent, Less than 6 Hours Per Day (ICD-10-PCS; 2024-10-30)
DX: N99.521 Infection of incontinent external stoma of urinary tract (principal); A41.9 Sepsis, unspecified organism; K72.00 Acute and subacute hepatic failure without coma; N17.9 Acute kidney failure, unspecified; N39.0 Urinary tract infection, site not specified; T83.128A Displacement of other urinary devices and implants, initial encounter; C21.0 Malignant neoplasm of anus, unspecified; E27.40 Unspecified adrenocortical insufficiency; G72.81 Critical illness myopathy; E87.20 Acidosis, unspecified; B96.89 Other specified bacterial agents as the cause of diseases classified elsewhere; B95.7 Other staphylococcus as the cause of diseases classified elsewhere; Z85.048 Personal history of other malignant neoplasm of rectum, rectosigmoid junction, and anus; Y65.8 Other specified misadventures during surgical and medical care; E66.9 Obesity, unspecified; E16.2 Hypoglycemia, unspecified; F43.20 Adjustment disorder, unspecified; T50.905A Adverse effect of unspecified drugs, medicaments and biological substances, initial encounter; K75.89 Other specified inflammatory liver diseases; N18.30 Chronic kidney disease, stage 3 unspecified; D63.1 Anemia in chronic kidney disease; L80 Vitiligo; I12.9 Hypertensive chronic kidney disease with stage 1 through stage 4 chronic kidney disease, or unspecified chronic kidney disease

== ENCOUNTER 2024-11-15 23:22 | Emergency (ER) | payer OTHER ==
[~2024-11-15] VITALS: Ht 180.3 cm; Wt 92.5 kg
[~2024-11-15 23:22] MED LIST changes: +MIDODRINE HCL5 MG PO
[2024-11-15 23:47] VITALS: O2SAT 99
[2024-11-16] MEDS ORDERED: ONDANSETRON HCL 2 MG/ML VIAL IV STA (00:06)
[2024-11-16] MEDS ORDERED: FAMOTIDINE/PF 20 MG/2 ML VIAL IV PUSH STA (00:06)
[2024-11-16] MEDS ORDERED: 0.9 % SODIUM CHLORIDE 500 ML IV ONE (00:15)
[2024-11-16] MEDS ORDERED: FAMOTIDINE/PF 20 MG/2 ML VIAL ONE (00:44)
[2024-11-16] MEDS ORDERED: ONDANSETRON HCL 2 MG/ML VIAL ONE (00:44)
[2024-11-16 01:26] LABS: BASO % 0.6 % (0.1-1.2); EOS # 1.24 (0.04-0.54); EOS % 8.2 % (0.7-7.0); LYMPH # 1.08 (1.18-3.74); LYMPH % 7.1 % (19.3-53.1); MEAN PLATELET VOLUME 9.60 fl (9.4-12.4); MONO # 0.82 (0.24-0.82); MONO % 5.4 % (4.7-12.5); NEUT # 11.32 (1.56-6.13); NEUT % 75.0 % (34.0-71.1); RED CELL DISTRIBUTION WIDTH 17.0 % (11.6-14.4)
[2024-11-16 01:39] LABS: INR 1.05
[2024-11-16 01:48] LABS: ALT/SGPT 18.0 U/L (12-78); AST/SGOT 31.0 U/L (15-37); BILIRUBIN TOTAL 1.32 mg/dL (0.3-1.2); BUN CREA RATIO 5.0 (7.0-25.0); CREATININE SERUM 2.4 mg/dL (0.70-1.30); GFR 27.85; GLOBULINA 5.1 G/DL (2.4-3.5); GLUCOSE FASTING 105.0 mg/dL (65-100); OSMOLALITY SERUM 279.0 MOSM/KG (275-295)
[2024-11-16 02:03] LABS: EOSINOPHIL MAN 8.0 %; LYMPHOCYTE MAN 4.0 %; MONOCYTE MAN 2.0 %; MYELOCYTE 3.0 %; NEUTROPHILS MAN 80.0 %
[2024-11-16 04:01] VITALS: BP 130/85
[2024-11-16 04:53] LABS: URINE APPEARANCE Turbid; URINE BILIRRUBIN Negative (NEGATIVE); URINE BLOOD Large; URINE COLOR Dark Yellow; URINE GLUCOSE Negative (NEGATIVE); URINE KETONE Negative (NEGATIVE); URINE LEUKOCYTE Large; URINE NITRATE Negative; URINE UROBILINOGEN 0.2 E.U./dl
[2024-11-16 04:58] LABS: URINE BACTERIA 3425.9 uL (0.0-1933); URINE CAST 8.74 uL (0.0-1.40); URINE EPITHELIAL CELLS 27.2 uL (0.0-38.8); URINE RBC 155.5 uL (0.0-20.8)
[2024-11-16 05:19] LABS: URINE PROTEIN 300 (NEGATIVE); URINE WBC > 5548.3 uL (0.0-23.2)
== END 2024-11-16 07:04 ==
LOC: ER 23:22
PROVIDERS: General Practice
DX: I95.9 Hypotension, unspecified (principal); R42 Dizziness and giddiness; I10 Essential (primary) hypertension; N28.9 Disorder of kidney and ureter, unspecified; Z99.2 Dependence on renal dialysis; Z85.89 Personal history of malignant neoplasm of other organs and systems
CPT/HCPCS: 36415; 93005; 96365; 99283; J2405; J3490; J7030

== ENCOUNTER 2024-12-05 17:02 | Inpatient (IN) | payer OTHER ==
[~2024-12-05] VITALS: Ht 180.3 cm; Wt 92.5 kg
--- NOTE | 2024-12-05 17:26 | NUR ---
SE RECIBE PACIENTE EN AMBULANCIA ALERTA YCONCIENTE XS3. EL MISMO RERFIERE VENIR POR VOMITOS EN EL BEE DE HOY. SE PROCEDE A YAHAIRA S/V A PACIENTE Y SE UBICDA EN MELANIE 8 CON BARANDAS ELEVADAS Y NIVEL MAS BAJO DE LA MISMA.
[2024-12-05] MEDS ORDERED: FAMOTIDINE/PF 20 MG/2 ML VIAL IV SCH (17:32)
[2024-12-05] MEDS ORDERED: 0.9 % SODIUM CHLORIDE 1,000 ML IV ONE (17:45)
[2024-12-05] MEDS ORDERED: PIPERACILLIN/TAZOBACTAM SODIUM 2.25 GM VIAL IV SCH (18:00)
[2024-12-05] MEDS ORDERED: FAMOTIDINE/PF 20 MG/2 ML VIAL ONE (18:03)
[2024-12-05 18:33] LABS: BASO % 0.4 % (0.1-1.2); EOS # 0.36 (0.04-0.54); EOS % 2.9 % (0.7-7.0); LYMPH # 1.14 (1.18-3.74); LYMPH % 9.1 % (19.3-53.1); MEAN PLATELET VOLUME 9.10 fl (9.4-12.4); MONO # 0.79 (0.24-0.82); MONO % 6.3 % (4.7-12.5); NEUT # 10.00 (1.56-6.13); NEUT % 79.5 % (34.0-71.1); RED CELL DISTRIBUTION WIDTH 14.6 % (11.6-14.4)
[2024-12-05 18:35] LABS: ERYTHROCYTE SEDIMENTATION RATE 45 mm/hr (0-20)
[2024-12-05 18:52] LABS: INR 1.05
[2024-12-05 18:58] LABS: ALT/SGPT 14.0 U/L (12-78); AST/SGOT 20.0 U/L (15-37); BILIRUBIN TOTAL 1.29 mg/dL (0.3-1.2); BUN CREA RATIO 5.0 (7.0-25.0); CREATININE SERUM 3.3 mg/dL (0.70-1.30); GFR 19.28; GLOBULINA 4.9 G/DL (2.4-3.5); GLUCOSE FASTING 94.0 mg/dL (65-100); OSMOLALITY SERUM 278.0 MOSM/KG (275-295)
--- NOTE | 2024-12-05 18:59 | NUR ---
SE ORIENTA A PACIENTE SOBRE TX MEDICO, REFIERE ENTENDER. SE REALIZAN MUESTRAS DE LABORATORIO BAJO MEDIDAS ASEPTICAS. SE ADMINISTRAN MEDICAMENTOS NICOLE ORDEN MEDICA. SE COORDINA CT Y DARRICK X. PENDIENTE RE-EVALUACION MEDICA.
[2024-12-05 19:30] LABS: URINE APPEARANCE Turbid; URINE BILIRRUBIN Negative (NEGATIVE); URINE BLOOD Large; URINE COLOR Dark Yellow; URINE GLUCOSE Negative (NEGATIVE); URINE KETONE Negative (NEGATIVE); URINE LEUKOCYTE Large; URINE NITRATE Negative; URINE UROBILINOGEN 1.0 E.U./dl
[2024-12-05 19:31] LABS: URINE CAST 6.39 uL (0.0-1.40); URINE RBC 1119.9 uL (0.0-20.8)
[2024-12-05 19:54] LABS: URINE BACTERIA > 9821.5 uL (0.0-1933); URINE EPITHELIAL CELLS > 201.7 uL (0.0-38.8); URINE PROTEIN 300 (NEGATIVE); URINE WBC > 5548.3 uL (0.0-23.2)
[2024-12-05] MEDS ORDERED: ACETAMINOPHEN 325 MG TABLET PO PRN (22:45)
[2024-12-05] MEDS ORDERED: ONDANSETRON HCL 4 MG in 0.9 % SODIUM CHLORIDE 50 ML IV PRN (22:45)
[2024-12-05] MEDS ORDERED: 0.9 % SODIUM CHLORIDE 1,000 ML IV SCH (23:00)
[2024-12-06 02:34] VITALS: BP 120/76; O2SAT 96
[2024-12-06 02:35] LABS: COVID-19 AG NEGATIVE (NEGATIVE)
[2024-12-06 08:00] VITALS: BP 111/70; O2SAT 96
[2024-12-06] MEDS ORDERED: ENOXAPARIN SODIUM 30 MG/0.3 ML SYRINGE SUBCUTANEO SCH (09:00)
[2024-12-06 14:40] LABS: BASO % 0.5 % (0.1-1.2); EOS # 0.41 (0.04-0.54); EOS % 3.9 % (0.7-7.0); LYMPH # 0.98 (1.18-3.74); LYMPH % 9.2 % (19.3-53.1); MEAN PLATELET VOLUME 9.00 fl (9.4-12.4); MONO # 0.67 (0.24-0.82); MONO % 6.3 % (4.7-12.5); NEUT # 8.37 (1.56-6.13); NEUT % 78.7 % (34.0-71.1); RED CELL DISTRIBUTION WIDTH 14.5 % (11.6-14.4)
[2024-12-06 15:36] LABS: BUN CREA RATIO 5.0 (7.0-25.0); CREATININE SERUM 3.71 mg/dL (0.70-1.30); GFR 16.85; GLUCOSE FASTING 98.0 mg/dL (65-100); OSMOLALITY SERUM 288.0 MOSM/KG (275-295)
[2024-12-06] MEDS ORDERED: LACTOBACILLUS ACIDOPHILUS 1 CAP CAP PO SCH (17:00)
[2024-12-06 18:32] VITALS: BP 135/80
[2024-12-06] MEDS ORDERED: PANTOPRAZOLE SODIUM 40 MG/VIAL VIAL IV SCH (21:00)
[2024-12-07 02:25] VITALS: BP 119/74; O2SAT 95
[2024-12-07 06:42] LABS: ALT/SGPT 15.0 U/L (12-78); AST/SGOT 26.0 U/L (15-37); BILIRUBIN TOTAL 0.92 mg/dL (0.3-1.2); BUN CREA RATIO 5.0 (7.0-25.0); CREATININE SERUM 3.74 mg/dL (0.70-1.30); GFR 16.69; GLOBULINA 4.3 G/DL (2.4-3.5); GLUCOSE FASTING 85.0 mg/dL (65-100); OSMOLALITY SERUM 290.0 MOSM/KG (275-295)
[2024-12-07] MEDS ORDERED: POTASSIUM CHLORIDE 20MEQ/100ML H2O PB IV NR (09:00)
[2024-12-07 09:01] VITALS: BP 129/83; O2SAT 97
[2024-12-07] MEDS ORDERED: VANCOMYCIN HCL 1,000 MG VIAL IV STA (11:12)
[2024-12-07 19:16] VITALS: BP 131/78; O2SAT 96
[2024-12-07] MEDS ORDERED: PIPERACILLIN/TAZOBACTAM SODIUM 2.25 GM VIAL IV SCH (21:00)
[2024-12-08 00:50] VITALS: BP 134/78; O2SAT 98
[2024-12-08 06:22] LABS: BASO % 0.3 % (0.1-1.2); EOS # 0.44 (0.04-0.54); EOS % 3.7 % (0.7-7.0); LYMPH # 1.23 (1.18-3.74); LYMPH % 10.4 % (19.3-53.1); MEAN PLATELET VOLUME 9.30 fl (9.4-12.4); MONO # 0.67 (0.24-0.82); MONO % 5.6 % (4.7-12.5); NEUT # 9.36 (1.56-6.13); NEUT % 78.8 % (34.0-71.1); RED CELL DISTRIBUTION WIDTH 14.0 % (11.6-14.4)
[2024-12-08 06:44] LABS: BUN CREA RATIO 4.0 (7.0-25.0); CREATININE SERUM 2.75 mg/dL (0.70-1.30); GFR 23.8; GLUCOSE FASTING 77.0 mg/dL (65-100); OSMOLALITY SERUM 287.0 MOSM/KG (275-295)
[2024-12-08] MEDS ORDERED: POTASSIUM CHLORIDE 20MEQ/100ML H2O PB IV NR (07:30)
[2024-12-08 09:07] VITALS: BP 126/74; O2SAT 97
[2024-12-09 01:38] VITALS: BP 113/71; O2SAT 97
[2024-12-09 08:59] VITALS: BP 128/83; O2SAT 97
[2024-12-09] MEDS ORDERED: VANCOMYCIN HCL 5 MG/ML REDILUIDO IV SCH (09:00)
[2024-12-09 20:26] VITALS: BP 139/85
[2024-12-10 02:32] VITALS: BP 130/81; O2SAT 95
[2024-12-10 08:37] VITALS: BP 105/69; O2SAT 97
[2024-12-10 16:00] VITALS: BP 154/90; O2SAT 99
[2024-12-11 03:21] VITALS: BP 131/84; O2SAT 96
[2024-12-11 08:18] VITALS: BP 114/71; O2SAT 97
[2024-12-11] MEDS ORDERED: VANCOMYCIN HCL 5 MG/ML REDILUIDO IV SCH (09:00)
[2024-12-11 16:58] VITALS: BP 140/85; O2SAT 97
[2024-12-12 03:05] VITALS: BP 144/87; O2SAT 96
[2024-12-12 09:35] VITALS: BP 133/80; O2SAT 96
[2024-12-12 10:59] LABS: BASO % 0.7 % (0.1-1.2); EOS # 0.57 (0.04-0.54); EOS % 6.7 % (0.7-7.0); LYMPH # 1.05 (1.18-3.74); LYMPH % 12.4 % (19.3-53.1); MEAN PLATELET VOLUME 9.10 fl (9.4-12.4); MONO # 0.42 (0.24-0.82); MONO % 4.9 % (4.7-12.5); NEUT # 6.24 (1.56-6.13); NEUT % 73.5 % (34.0-71.1); RED CELL DISTRIBUTION WIDTH 13.4 % (11.6-14.4)
[2024-12-12 11:33] LABS: BUN CREA RATIO 3.0 (7.0-25.0); CREATININE SERUM 2.24 mg/dL (0.70-1.30); GFR 30.15; GLUCOSE FASTING 92.0 mg/dL (65-100); OSMOLALITY SERUM 288.0 MOSM/KG (275-295)
[2024-12-12] MEDS ORDERED: SOD FERRIC GLUC COMPLX/SUCROSE 62.5 MG in 0.9 % SODIUM CHLORIDE 50 ML IV NR (12:30)
[2024-12-12] MEDS ORDERED: POTASSIUM CHLORIDE 20MEQ/100ML H2O PB IV NR (12:30)
[2024-12-12] MEDS ORDERED: Cyanocobalamin/Mecobalamin 1 TAB.SL SL NR (12:30)
[2024-12-12 17:34] VITALS: BP 150/85; O2SAT 98
[2024-12-12] MEDS ORDERED: POTASSIUM PHOS,M-BASIC-D-BASIC 3 MM/ML VIAL IV NR (18:00)
[2024-12-13 00:30] LABS: MONONUCLEAR 57.0 %; POLYMORPHONUCLEAR 43.0 %
[2024-12-13 01:04] LABS: GLU PLEURAL FLUID 91.0 mg/dl; LDH PLEURAL FLUID 115.0 U/L; TP PLEURAL FLUID 4.2 g/dl
[2024-12-13 01:16] VITALS: BP 134/84; O2SAT 96
[2024-12-13 08:35] VITALS: BP 118/71; O2SAT 98
[2024-12-13] MEDS ORDERED: Cyanocobalamin/Mecobalamin 1 TAB.SL SL SCH (09:00)
[2024-12-13] MEDS ORDERED: SOD FERRIC GLUC COMPLX/SUCROSE 62.5 MG in 0.9 % SODIUM CHLORIDE 50 ML IV SCH (09:00)
[2024-12-13] MEDS ORDERED: SODIUM CHLORIDE 0.45 % 1,000 ML IV SCH (10:30)
[2024-12-13] MEDS ORDERED: POTASSIUM CHLORIDE 20MEQ/100ML H2O PB IV NR ×2 (11:15→20:00)
[2024-12-13 18:12] VITALS: BP 135/85; O2SAT 97
[2024-12-13 18:41] LABS: ALT/SGPT 15.0 U/L (12-78); AST/SGOT 22.0 U/L (15-37); BILIRUBIN TOTAL 0.7 mg/dL (0.3-1.2); BUN CREA RATIO 2.0 (7.0-25.0); CREATININE SERUM 2.02 mg/dL (0.70-1.30); GFR 33.98; GLOBULINA 4.0 G/DL (2.4-3.5); GLUCOSE FASTING 77.0 mg/dL (65-100); OSMOLALITY SERUM 287.0 MOSM/KG (275-295)
[2024-12-14 01:47] VITALS: BP 127/71; O2SAT 96
[2024-12-14 08:37] VITALS: BP 136/79; O2SAT 97
[2024-12-14] MEDS ORDERED: AMINO ACIDS 1 EACH TABLET PO SCH (11:42)
[2024-12-14 17:29] VITALS: BP 127/80
[2024-12-15 03:09] VITALS: BP 143/77; O2SAT 98
[2024-12-15 06:45] LABS: CREATININE SERUM 2.89 mg/dL (0.70-1.30); GFR 22.47
[2024-12-15 07:01] LABS: ALT/SGPT 13 U/L (12-78); AST/SGOT 17 U/L (15-37); BILIRUBIN TOTAL 0.63 mg/dL (0.3-1.2); GLOBULINA 4.1 G/DL (2.4-3.5); GLUCOSE FASTING 92 mg/dL (65-100); OSMOLALITY SERUM 289 MOSM/KG (275-295)
[2024-12-15 08:57] VITALS: BP 150/85; O2SAT 96
[2024-12-15] MEDS ORDERED: POTASSIUM CHLORIDE 20MEQ/100ML H2O PB IV NR (17:00)
[2024-12-15] MEDS ORDERED: (FF) Daptomycin 50 MG/ML IV SCH (17:00)
[2024-12-15 17:58] VITALS: BP 132/80
[2024-12-16] MEDS ORDERED: PIPERACILLIN/TAZOBACTAM SODIUM 2.25 GM VIAL IV SCH
[2024-12-16 03:40] VITALS: BP 145/81; O2SAT 98
[2024-12-16 07:51] LABS: BASO % 0.6 % (0.1-1.2); EOS # 0.58 (0.04-0.54); EOS % 6.3 % (0.7-7.0); LYMPH # 1.33 (1.18-3.74); LYMPH % 14.3 % (19.3-53.1); MEAN PLATELET VOLUME 10.40 fl (9.4-12.4); MONO # 0.41 (0.24-0.82); MONO % 4.4 % (4.7-12.5); NEUT # 6.74 (1.56-6.13); NEUT % 72.8 % (34.0-71.1); RED CELL DISTRIBUTION WIDTH 13.8 % (11.6-14.4)
[2024-12-16 08:10] LABS: ALT/SGPT 15.0 U/L (12-78); AST/SGOT 22.0 U/L (15-37); BILIRUBIN TOTAL 0.59 mg/dL (0.3-1.2); BUN CREA RATIO 3.0 (7.0-25.0); CREATININE SERUM 3.0 mg/dL (0.70-1.30); GFR 21.53; GLOBULINA 4.3 G/DL (2.4-3.5); GLUCOSE FASTING 74.0 mg/dL (65-100); OSMOLALITY SERUM 284.0 MOSM/KG (275-295)
[2024-12-16 08:40] VITALS: BP 132/82; O2SAT 96
[2024-12-16 12:55] LABS: CREATINE CLEARANCE 20.6 ML/MIN (97-137); CREATININE SERUM 3.0 mg/dL (0.8-1.3)
[2024-12-16] MEDS ORDERED: SPIRONOLACTONE 25 MG TABLET PO SCH (14:28)
[2024-12-16 16:51] VITALS: BP 134/74; O2SAT 97
[2024-12-16] MEDS ORDERED: POTASSIUM CHLORIDE IN WATER 100 ML IV STA (17:51)
[2024-12-17 02:08] VITALS: BP 129/70; O2SAT 97
[2024-12-17 05:21] LABS: BUN CREA RATIO 3.0 (7.0-25.0); CREATININE SERUM 3.24 mg/dL (0.70-1.30); GFR 19.7; GLUCOSE FASTING 83.0 mg/dL (65-100); OSMOLALITY SERUM 291.0 MOSM/KG (275-295)
[2024-12-17 08:18] VITALS: BP 133/82; O2SAT 96
[2024-12-17 16:58] VITALS: BP 138/84; O2SAT 97
[2024-12-18 02:44] VITALS: BP 160/87
[2024-12-18 06:46] LABS: BUN CREA RATIO 3.0 (7.0-25.0); CREATININE SERUM 3.29 mg/dL (0.70-1.30); GFR 19.35; GLUCOSE FASTING 78.0 mg/dL (65-100); OSMOLALITY SERUM 291.0 MOSM/KG (275-295)
[2024-12-18 09:44] VITALS: BP 150/85; O2SAT 97
[2024-12-18 16:24] VITALS: BP 137/86; O2SAT 100; O2SAT 98
[2024-12-19 00:27] VITALS: BP 145/84; O2SAT 98
[2024-12-19 08:25] VITALS: BP 149/81
[2024-12-19 16:49] VITALS: BP 134/80; O2SAT 97
[2024-12-19] MEDS ORDERED: fentaNYL CITRATE 50 MCG/ML AMPUL IV PUSH ONE (19:00)
[2024-12-19] MEDS ORDERED: (FF) Daptomycin 50 MG/ML IV SCH (21:00)
[2024-12-20 03:01] VITALS: BP 146/88; O2SAT 98
[2024-12-20 09:21] VITALS: BP 141/84; O2SAT 97
[2024-12-20] MEDS ORDERED: FUSION PLUS CA1 EACH PO (15:10)
[2024-12-20] MEDS ORDERED: AMLODIPINE BESY10 MG PO (15:10)
[2024-12-20] MEDS ORDERED: AMOX1TAB5 PO ×2 (15:10)
[2024-12-20] MEDS ORDERED: PRE PROTEIN1 EACH PO ×2 (15:10)
[2024-12-20] MEDS ORDERED: PEPCID AC20 MG PO ×2 (15:10)
[2024-12-20] MEDS ORDERED: INTESTINEX680 M2 PO ×2 (15:10)
[2024-12-20] MEDS ORDERED: ABANEU-SL TABL1 EACH SL (15:10)
[2024-12-20 17:58] VITALS: BP 143/85; O2SAT 98
== END 2024-12-20 19:01 | disposition home or self-care (01) | DRG 689 ==
LOC: ER 17:02 → MEDI 22:59 → SEC-K 22:59 → MEDI 12-06 00:31
PROVIDERS: General Practice; Internal Medicine; Internal Medicine Nephrology; Radiology Vascular & Interventional Radiology; Specialist; ADMIT Internal Medicine Geriatric Medicine; ATTEND Internal Medicine Geriatric Medicine
PROC: BW21ZZZ Computerized Tomography (CT Scan) of Abdomen and Pelvis (ICD-10-PCS; 2024-12-05)
PROC: B24BYZZ Ultrasonography of Heart with Aorta using Other Contrast (ICD-10-PCS; 2024-12-07)
PROC: 0T9130Z Drainage of Left Kidney with Drainage Device, Percutaneous Approach (ICD-10-PCS; 2024-12-08)
PROC: 0T9030Z Drainage of Right Kidney with Drainage Device, Percutaneous Approach (ICD-10-PCS; 2024-12-08)
PROC: 0T25X0Z Change Drainage Device in Kidney, External Approach (ICD-10-PCS; principal; 2024-12-08 16:00)
PROC: 0W9B3ZZ Drainage of Left Pleural Cavity, Percutaneous Approach (ICD-10-PCS; 2024-12-12)
PROC: 02PY33Z Removal of Infusion Device from Great Vessel, Percutaneous Approach (ICD-10-PCS; 2024-12-19)
DX: N39.0 Urinary tract infection, site not specified (principal); N18.6 End stage renal disease; R65.21 Severe sepsis with septic shock; J90 Pleural effusion, not elsewhere classified; T83.512A Infection and inflammatory reaction due to nephrostomy catheter, initial encounter; N12 Tubulo-interstitial nephritis, not specified as acute or chronic; N28.9 Disorder of kidney and ureter, unspecified; Z99.2 Dependence on renal dialysis; I10 Essential (primary) hypertension; E66.9 Obesity, unspecified; Z68.35 Body mass index [BMI] 35.0-35.9, adult; C43.51 Malignant melanoma of anal skin